=== PATIENT | male | born 1980 | race Hispanic/Latino ===

== ENCOUNTER 2021-01-16 21:23 | Emergency (ER) | payer BC ==
[~2021-01-16] VITALS: Ht 190.5 cm; Wt 115.7 kg
[2021-01-16] MEDS ORDERED: ONDANSETRON HCL INJ 2MG/ML 2ML 2 MG/ML VIAL IV STA (21:50)
[2021-01-16] MEDS ORDERED: Morphine 4mg Syringe 4 MG/ML INJ IV ONE (22:00)
[2021-01-16 22:25] LABS: BASOPHILS % 0.5 % (0.0-1.0); EOSINOPHILS # (AUTO) 0.1 (0.0-0.4); EOSINOPHILS % 1.7 % (0.0-6.0); HEMATOCRIT 28.9 % (38.2-49.6); HEMOGLOBIN 9.2 g/dL (14.0-18.0); LYMPHOCYTES # (AUTO) 0.9 (1.0-3.2); MEAN CORPUSCULAR HEMOGLOBIN 29.5 pg (28-32); MEAN CORPUSCULAR HGB CONC 31.8 g/dL (31-35); MEAN CORPUSCULAR VOLUME 92.6 fL (81-99); MONOCYTES # (AUTO) 0.4 (0.2-0.8); MONOCYTES % 7.1 % (4.4-11.3); NEUTROPHILS # (AUTO) 4.6 (2.1-6.9); NEUTROPHILS % 76.4 % (38.7-80.0); PLATELET COUNT 162 x10e3/uL (140-360); RED BLOOD COUNT 3.12 x10e6/uL (4.3-5.7); RED CELL DISTRIBUTION WIDTH 14.7 % (11.7-14.4)
[2021-01-16 22:26] LABS: CLARITY,URINE CLEAR (CLEAR); COLOR,URINE YELLOW (YELLOW); KETONES,URINE NEGATIVE (NEGATIVE); LEUKOCYTE ESTERASE ,URINE NEGATIVE (NEGATIVE); NITRITE,URINE NEGATIVE (NEGATIVE); PROTEIN,URINE DIPSTICK >=300 (NEGATIVE); URINE UROBILINOGEN 0.2 mg/dL (0.2 - 1)
[2021-01-16 22:30] LABS: BACTERIA,URINE FEW /HPF; EPITHELIAL CELLS,URINE FEW /LPF
[2021-01-16 22:43] LABS: AMYLASE 67 U/L (25-125); LIPASE 51 U/L (8-78)
[2021-01-16 22:47] LABS: ALBUMIN 3.8 g/dL (3.5-5.0); ALBUMIN/GLOBULIN RATIO 1.2 (0.8-2.0); ANION GAP 22.4 mmol/L (8-16); CALCIUM 8.6 mg/dL (8.4-10.2); CREATININE, SERUM 11.31 mg/dL (0.72-1.25); POTASSIUM 4.4 mmol/L (3.5-5.1)
[2021-01-16] MEDS ORDERED: ONDANSETRON ODT4 MG PO (23:33)
[2021-01-16] MEDS ORDERED: CIPRO500 MG PO (23:33)
[2021-01-16] MEDS ORDERED: METRONIDAZOLE500 MG PO (23:33)
[2021-01-16] MEDS ORDERED: HYDROCODON-ACE1 EAC9 PO (23:33)
[2021-01-17 00:56] VITALS: BP 152/91
== END 2021-01-17 00:57 | disposition home or self-care (01) ==
LOC: ER 21:58
DX: K62.89 Other specified diseases of anus and rectum (principal); R10.30 Lower abdominal pain, unspecified; R11.2 Nausea with vomiting, unspecified; I12.0 Hypertensive chronic kidney disease with stage 5 chronic kidney disease or end stage renal disease; N18.6 End stage renal disease; Z99.2 Dependence on renal dialysis; J98.11 Atelectasis
CPT/HCPCS: 36415; 74176; 80053; 81001; 82150; 83690; 85025; 99284; J2270; J2405

== ENCOUNTER 2021-01-24 23:55 | Emergency (ER) | payer BC ==
[~2021-01-24] VITALS: Ht 190.5 cm; Wt 115.7 kg
[~2021-01-24 23:55] MED LIST: CIPRO500 MG PO; HYDROCODON-ACE1 EAC9 PO; METRONIDAZOLE500 MG PO; ONDANSETRON ODT4 MG PO
[2021-01-25] MEDS ORDERED: ONDANSETRON ODT4 MG PO (00:13)
[2021-01-25] MEDS ORDERED: METRONIDAZOLE500 MG PO (00:13)
[2021-01-25] MEDS ORDERED: CIPRO500 MG PO (00:13)
[2021-01-25] MEDS ORDERED: HYDROCODON-ACE1 EAC9 PO (00:13)
[2021-01-25 00:19] VITALS: BP 164/100
== END 2021-01-25 01:00 | disposition home or self-care (01) ==
LOC: ER 01-25 00:01
DX: K62.89 Other specified diseases of anus and rectum (principal); I12.0 Hypertensive chronic kidney disease with stage 5 chronic kidney disease or end stage renal disease; N18.6 End stage renal disease; Z99.2 Dependence on renal dialysis; Z90.49 Acquired absence of other specified parts of digestive tract
CPT/HCPCS: 99283

== ENCOUNTER 2021-02-04 17:04 | Inpatient (IN) | payer BC ==
[~2021-02-04] VITALS: Ht 190.5 cm; Wt 122.5 kg
[2021-02-04 17:32] LABS: BASOPHILS % 0.5 % (0.0-1.0); EOSINOPHILS # (AUTO) 0.1 (0.0-0.4); EOSINOPHILS % 1.7 % (0.0-6.0); HEMATOCRIT 34.7 % (38.2-49.6); HEMOGLOBIN 10.6 g/dL (14.0-18.0); LYMPHOCYTES # (AUTO) 0.8 (1.0-3.2); LYMPHOCYTES % 12.6 % (18.0-39.1); MEAN CORPUSCULAR HEMOGLOBIN 29.2 pg (28-32); MEAN CORPUSCULAR HGB CONC 30.5 g/dL (31-35); MEAN CORPUSCULAR VOLUME 95.6 fL (81-99); MONOCYTES # (AUTO) 0.4 (0.2-0.8); MONOCYTES % 7.4 % (4.4-11.3); NEUTROPHILS # (AUTO) 4.6 (2.1-6.9); NEUTROPHILS % 77.5 % (38.7-80.0); PLATELET COUNT 160 x10e3/uL (140-360); RED BLOOD COUNT 3.63 x10e6/uL (4.3-5.7); RED CELL DISTRIBUTION WIDTH 15.9 % (11.7-14.4)
[2021-02-04] MEDS ORDERED: SODIUM CHLORIDE 0.9% 50ML 50 ML ONE (17:43)
[2021-02-04] MEDS ORDERED: IOPAMIDOL 370 MG/ML 200 ML INFUS..BTL INJ ONE (17:44)
[2021-02-04 17:45] LABS: ALBUMIN/GLOBULIN RATIO 1.2 (0.8-2.0); CALCIUM 9.1 mg/dL (8.4-10.2); CREATININE, SERUM 8.73 mg/dL (0.72-1.25)
[2021-02-04] MEDS ORDERED: ASPIRIN 325 MG TAB EC PO NR (19:00)
[2021-02-04] MEDS ORDERED: ACETAMINOPHEN 325 MG TAB PO PRN (19:45)
[2021-02-04] MEDS ORDERED: ASPIRIN 325 MG TAB ONE (19:55)
[2021-02-04 21:05] VITALS: BP 165/107
[2021-02-04 21:10] VITALS: BP 167/107
[2021-02-04] MEDS ORDERED: Morphine 2mg Syringe 2 MG/ML SYR IV PRN (21:15)
[2021-02-04] MEDS ORDERED: TRAMADOL HCL 50 MG TAB PO PRN (23:30)
[2021-02-04] MEDS: PROMETHAZINE 12.5MG/ NACL 0.9% 12.5 MG/50 ML BAG IV PRN (23:47)
[2021-02-05] VITALS (9 sets, daily range): BP systolic 118–177; BP diastolic 74–114
[2021-02-05] MEDS ORDERED: AMLODIPINE BESYL5 MG PO (00:56)
[2021-02-05] MEDS: HYDROMORPHONE 1MG/1ML INJ IV PRN ×6 (03:40→22:26)
[2021-02-05] MEDS: PROMETHAZINE 12.5MG/ NACL 0.9% 12.5 MG/50 ML BAG IV PRN (03:48)
[2021-02-05 05:01] LABS: BASOPHILS % 0.7 % (0.0-1.0); EOSINOPHILS # (AUTO) 0.2 (0.0-0.4); EOSINOPHILS % 2.7 % (0.0-6.0); HEMATOCRIT 32.4 % (38.2-49.6); LYMPHOCYTES # (AUTO) 1.1 (1.0-3.2); LYMPHOCYTES % 19.8 % (18.0-39.1); MEAN CORPUSCULAR HEMOGLOBIN 29.4 pg (28-32); MEAN CORPUSCULAR HGB CONC 30.9 g/dL (31-35); MEAN CORPUSCULAR VOLUME 95.3 fL (81-99); MONOCYTES # (AUTO) 0.4 (0.2-0.8); MONOCYTES % 7.8 % (4.4-11.3); NEUTROPHILS # (AUTO) 3.8 (2.1-6.9); NEUTROPHILS % 68.6 % (38.7-80.0); PLATELET COUNT 151 x10e3/uL (140-360)
[2021-02-05 05:24] LABS: ANION GAP 19.8 mmol/L (8-16); CREATININE, SERUM 9.19 mg/dL (0.72-1.25); POTASSIUM 3.8 mmol/L (3.5-5.1)
[2021-02-05] MEDS ORDERED: AMLODIPINE BESYLATE 10 MG TAB PO SCH (09:00)
[2021-02-05] MEDS: CARVEDILOL 12.5 MG TAB PO SCH ×2 (10:30→18:02)
[2021-02-05] MEDS: INDOMETHACIN 25 MG CAP PO SCH ×3 (11:15→21:26)
[2021-02-05] MEDS: DIPHENHYDRAMINE HCL INJ 50 MG/ML VIAL IV PRN ×2 (11:30→18:02)
[2021-02-05] MEDS ORDERED: SODIUM CHLORIDE 0.9% 1000ML 1,000 ML ONE (13:24)
[2021-02-05] MEDS ORDERED: SODIUM CHLORIDE 0.9% 250ML 500 ML IV PRN (15:15)
[2021-02-05] MEDS ORDERED: SODIUM CHLORIDE 0.9% 1000ML 2,000 ML IV PRN (15:15)
[2021-02-05] MEDS: LOSARTAN POTASSIUM 25 MG TAB PO SCH ×2 (16:33→16:35)
[2021-02-05] MEDS: NIFEDIPINE CR 30 MG TAB PO SCH (21:26)
[2021-02-06] VITALS (8 sets, daily range): BP systolic 115–148; BP diastolic 81–101
[2021-02-06] MEDS: DIPHENHYDRAMINE HCL INJ 50 MG/ML VIAL IV PRN ×4 (00:31→21:15)
[2021-02-06] MEDS: HYDROMORPHONE 1MG/1ML INJ IV PRN ×4 (04:12→19:46)
[2021-02-06 05:05] LABS: BASOPHILS % 0.7 % (0.0-1.0); EOSINOPHILS # (AUTO) 0.1 (0.0-0.4); EOSINOPHILS % 2.9 % (0.0-6.0); HEMATOCRIT 33.4 % (38.2-49.6); HEMOGLOBIN 10.1 g/dL (14.0-18.0); LYMPHOCYTES # (AUTO) 0.7 (1.0-3.2); LYMPHOCYTES % 17.6 % (18.0-39.1); MEAN CORPUSCULAR HEMOGLOBIN 29.3 pg (28-32); MEAN CORPUSCULAR HGB CONC 30.2 g/dL (31-35); MEAN CORPUSCULAR VOLUME 96.8 fL (81-99); MONOCYTES # (AUTO) 0.4 (0.2-0.8); MONOCYTES % 8.9 % (4.4-11.3); NEUTROPHILS # (AUTO) 2.9 (2.1-6.9); NEUTROPHILS % 69.7 % (38.7-80.0); PLATELET COUNT 156 x10e3/uL (140-360); RED BLOOD COUNT 3.45 x10e6/uL (4.3-5.7); RED CELL DISTRIBUTION WIDTH 15.9 % (11.7-14.4)
[2021-02-06 05:42] LABS: THYROID STIMULATING HORMONE 1.779 uIU/mL (0.350-4.940)
[2021-02-06 05:45] LABS: ALBUMIN 3.6 g/dL (3.5-5.0); ALBUMIN/GLOBULIN RATIO 1.1 (0.8-2.0); ANION GAP 16.2 mmol/L (8-16); CALCIUM 9.1 mg/dL (8.4-10.2); CHOL/HDL RATIO 4.8 (3.9-4.7); CREATININE, SERUM 7.09 mg/dL (0.72-1.25); MAGNESIUM 2.1 MG/DL (1.3-2.1); PHOSPHORUS 6.1 MG/DL (2.3-4.7); POTASSIUM 4.2 mmol/L (3.5-5.1)
[2021-02-06] MEDS: CARVEDILOL 12.5 MG TAB PO SCH ×3 (08:49→21:00)
[2021-02-06] MEDS: INDOMETHACIN 25 MG CAP PO SCH ×3 (09:00→21:14)
[2021-02-06] MEDS ORDERED: REGADENOSON 0.4 MG/5 ML SYR IV ONE (12:02)
[2021-02-06] MEDS: LOSARTAN POTASSIUM 25 MG TAB PO SCH ×2 (16:46→17:00)
[2021-02-06] MEDS: PANTOPRAZOLE SOD 40 MG TABEC PO SCH (16:46)
[2021-02-06] MEDS ORDERED: IOPAMIDOL 370 MG/ML 200 ML INFUS..BTL INJ ONE (19:56)
[2021-02-06] MEDS ORDERED: SODIUM CHLORIDE 0.9% 100 ML ONE (19:57)
[2021-02-06] MEDS: NIFEDIPINE CR 30 MG TAB PO SCH (21:15)
[2021-02-07] VITALS (10 sets, daily range): BP systolic 116–127; BP diastolic 53–88
[2021-02-07] MEDS: HYDROMORPHONE 1MG/1ML INJ IV PRN ×5 (01:12→20:39)
[2021-02-07] MEDS: DIPHENHYDRAMINE HCL INJ 50 MG/ML VIAL IV PRN ×2 (03:45→18:47)
[2021-02-07 05:04] LABS: BASOPHILS % 0.5 % (0.0-1.0); EOSINOPHILS # (AUTO) 0.2 (0.0-0.4); EOSINOPHILS % 3.9 % (0.0-6.0); HEMATOCRIT 30.5 % (38.2-49.6); HEMOGLOBIN 9.5 g/dL (14.0-18.0); LYMPHOCYTES # (AUTO) 0.6 (1.0-3.2); MEAN CORPUSCULAR HEMOGLOBIN 29.3 pg (28-32); MEAN CORPUSCULAR HGB CONC 31.1 g/dL (31-35); MEAN CORPUSCULAR VOLUME 94.1 fL (81-99); MONOCYTES # (AUTO) 0.4 (0.2-0.8); MONOCYTES % 8.3 % (4.4-11.3); NEUTROPHILS # (AUTO) 3.2 (2.1-6.9); NEUTROPHILS % 72.8 % (38.7-80.0); PLATELET COUNT 142 x10e3/uL (140-360); RED BLOOD COUNT 3.24 x10e6/uL (4.3-5.7); RED CELL DISTRIBUTION WIDTH 15.8 % (11.7-14.4)
[2021-02-07 05:17] LABS: INR 1.13; PROTHROMBIN TIME 15.4 seconds (11.9-14.5)
[2021-02-07 05:18] LABS: PARTIAL THROMBOPLASTIN TIME 29.7 seconds (23.8-35.5)
[2021-02-07 05:28] LABS: ALBUMIN 3.6 g/dL (3.5-5.0); ALBUMIN/GLOBULIN RATIO 1.2 (0.8-2.0); ANION GAP 17.1 mmol/L (8-16); CALCIUM 8.7 mg/dL (8.4-10.2); CREATININE, SERUM 9.14 mg/dL (0.72-1.25); POTASSIUM 4.1 mmol/L (3.5-5.1)
[2021-02-07 06:17] LABS: MAGNESIUM 2.1 MG/DL (1.3-2.1); PHOSPHORUS 7.6 MG/DL (2.3-4.7)
[2021-02-07] MEDS: PANTOPRAZOLE SOD 40 MG TABEC PO SCH (07:30)
[2021-02-07] MEDS ORDERED: HEPARIN SOD (PORCINE) 1000 UNIT/ML 30ML ONE (08:03)
[2021-02-07] MEDS ORDERED: VERAPAMIL HCL 2.5 MG/ML 2 ML VIAL ONE (08:03)
[2021-02-07] MEDS ORDERED: MIDAZOLAM HCL 2 MG/2 ML VIAL ONE (08:04)
[2021-02-07] MEDS ORDERED: NITROGLYCERIN/D5W 200 MCG/ML 0 ML ONE (08:05)
[2021-02-07] MEDS ORDERED: HEPARIN SOD/SOD CHLORIDE 2,000 ML ONE (08:05)
[2021-02-07] MEDS ORDERED: SODIUM CHLORIDE 0.9% 500ML 500 ML ONE (08:05)
[2021-02-07] MEDS ORDERED: FENTANYL CITRATE/PF 100MCG/2 ML INJ ONE (08:05)
[2021-02-07] MEDS ORDERED: IOPAMIDOL 370 MG/ML 200 ML INFUS..BTL INJ ONE (08:05)
[2021-02-07] MEDS ORDERED: LIDOCAINE HCL 2% LOCAL 20 ML VIAL ONE (08:05)
[2021-02-07] MEDS: INDOMETHACIN 25 MG CAP PO SCH ×3 (09:00→21:45)
[2021-02-07] MEDS: LOSARTAN POTASSIUM 25 MG TAB PO SCH (09:00)
[2021-02-07] MEDS: CARVEDILOL 12.5 MG TAB PO SCH ×2 (09:00→21:43)
[2021-02-07] MEDS ORDERED: LIPITOR10 MG PO (14:20)
[2021-02-07 14:36] LABS: % IRON SATURATION 17 % (15-50); IRON 43 ug/dL (65-175); TOTAL IRON BINDING CAPACITY 253 ug/dL (261-478); TRANSFERRIN 181 mg/dL (174-364)
[2021-02-07] MEDS ORDERED: SACUBITRIL/VALSARTAN 1 EACH TABLET PO SCH (17:00)
[2021-02-07] MEDS: SACUBITRIL/VALSARTAN 1 EACH TABLET PO SCH (21:44)
[2021-02-07] MEDS: ATORVASTATIN 10 MG TAB PO SCH (21:45)
[2021-02-07] MEDS: NIFEDIPINE CR 30 MG TAB PO SCH (21:46)
[2021-02-08] VITALS (7 sets, daily range): BP systolic 109–120; BP diastolic 77–85
[2021-02-08] MEDS ORDERED: DONNATAL/LIDOCAINE/MAALOX 30 ML SUSP PO ONE
[2021-02-08] MEDS ORDERED: BELLADONNA ALK/PHENOBARBITAL 5 ML UDC ONE (00:48)
[2021-02-08] MEDS ORDERED: LIDOCAINE VISC 2% SOLN 15 ML UDC ONE (00:48)
[2021-02-08] MEDS ORDERED: MAGNESIUM/ALUMINUM/SIMETHICONE 30 ML UDC ONE (00:48)
[2021-02-08] MEDS: DIPHENHYDRAMINE HCL INJ 50 MG/ML VIAL IV PRN ×3 (02:46→20:32)
[2021-02-08] MEDS: HYDROMORPHONE 1MG/1ML INJ IV PRN ×3 (02:55→20:32)
[2021-02-08 06:10] LABS: BASOPHILS % 0.9 % (0.0-1.0); EOSINOPHILS # (AUTO) 0.2 (0.0-0.4); EOSINOPHILS % 4.1 % (0.0-6.0); HEMATOCRIT 30.6 % (38.2-49.6); HEMOGLOBIN 9.5 g/dL (14.0-18.0); LYMPHOCYTES # (AUTO) 0.6 (1.0-3.2); LYMPHOCYTES % 14.3 % (18.0-39.1); MEAN CORPUSCULAR HEMOGLOBIN 29.4 pg (28-32); MEAN CORPUSCULAR VOLUME 94.7 fL (81-99); MONOCYTES # (AUTO) 0.4 (0.2-0.8); MONOCYTES % 9.3 % (4.4-11.3); NEUTROPHILS # (AUTO) 3.1 (2.1-6.9); NEUTROPHILS % 71.2 % (38.7-80.0); PLATELET COUNT 144 x10e3/uL (140-360); RED BLOOD COUNT 3.23 x10e6/uL (4.3-5.7)
[2021-02-08 06:27] LABS: ALBUMIN 3.6 g/dL (3.5-5.0); ALBUMIN/GLOBULIN RATIO 1.2 (0.8-2.0); ANION GAP 16.5 mmol/L (8-16); CREATININE, SERUM 7.17 mg/dL (0.72-1.25); POTASSIUM 4.5 mmol/L (3.5-5.1)
[2021-02-08] MEDS: PANTOPRAZOLE SOD 40 MG TABEC PO SCH (07:30)
[2021-02-08] MEDS: CARVEDILOL 12.5 MG TAB PO SCH ×2 (09:00→20:16)
[2021-02-08] MEDS: SACUBITRIL/VALSARTAN 1 EACH TABLET PO SCH ×2 (09:00→20:17)
[2021-02-08] MEDS: ASPIRIN 81 MG CHEW TAB PO SCH (09:00)
[2021-02-08] MEDS: INDOMETHACIN 25 MG CAP PO SCH ×2 (09:00→14:21)
[2021-02-08] MEDS ORDERED: PROPOFOL IV EMULSION 10 MG/ML 20 ML VIAL ONE (12:27)
[2021-02-08] MEDS ORDERED: LIDOCAINE HCL 2% LOCAL INJ 5 ML SDV VIAL INJ ONE (12:27)
[2021-02-08] MEDS ORDERED: FENTANYL CITRATE/PF 100MCG/2 ML INJ ONE (12:29)
[2021-02-08] MEDS ORDERED: SODIUM CHLORIDE 0.9% 500ML 500 ML ONE (15:57)
[2021-02-08] MEDS ORDERED: METOCLOPRAMIDE HCL 10 MG/2ML VIAL IV SCH (18:00)
[2021-02-08] MEDS: ATORVASTATIN 10 MG TAB PO SCH (20:17)
[2021-02-08] MEDS: NIFEDIPINE CR 30 MG TAB PO SCH (20:17)
[2021-02-08] MEDS: PROMETHAZINE 12.5MG/ NACL 0.9% 12.5 MG/50 ML BAG IV PRN (21:43)
[2021-02-08] MEDS ORDERED: ASPIRIN CHEW81 MG PO (22:27)
[2021-02-08] MEDS ORDERED: ENTRESTO 49 MG1 EACH PO (22:27)
[2021-02-08] MEDS ORDERED: COREG12.5 MG PO (22:27)
[2021-02-09] VITALS (9 sets, daily range): BP systolic 102–125; BP diastolic 66–99
[2021-02-09] MEDS ORDERED: METOCLOPRAMIDE HCL 10 MG/2ML VIAL IV STA (02:47)
[2021-02-09] MEDS: Pantoprazole IV 40 MG in SODIUM CHLORIDE 0.9% 50ML 50 ML IV SCH ×2 (03:00→08:00)
[2021-02-09] MEDS: HYDROMORPHONE 1MG/1ML INJ IV PRN ×2 (04:20→09:00)
[2021-02-09] MEDS: DIPHENHYDRAMINE HCL INJ 50 MG/ML VIAL IV PRN ×3 (04:21→22:25)
[2021-02-09 05:13] LABS: BASOPHILS % 0.8 % (0.0-1.0); EOSINOPHILS # (AUTO) 0.1 (0.0-0.4); HEMATOCRIT 31.4 % (38.2-49.6); HEMOGLOBIN 9.7 g/dL (14.0-18.0); LYMPHOCYTES # (AUTO) 0.7 (1.0-3.2); LYMPHOCYTES % 14.2 % (18.0-39.1); MEAN CORPUSCULAR HEMOGLOBIN 29.4 pg (28-32); MEAN CORPUSCULAR HGB CONC 30.9 g/dL (31-35); MEAN CORPUSCULAR VOLUME 95.2 fL (81-99); MONOCYTES # (AUTO) 0.4 (0.2-0.8); MONOCYTES % 8.3 % (4.4-11.3); NEUTROPHILS # (AUTO) 3.7 (2.1-6.9); NEUTROPHILS % 74.5 % (38.7-80.0); PLATELET COUNT 126 x10e3/uL (140-360)
[2021-02-09 05:34] LABS: ALBUMIN 3.6 g/dL (3.5-5.0); ALBUMIN/GLOBULIN RATIO 1.2 (0.8-2.0); ANION GAP 16.9 mmol/L (8-16); CALCIUM 8.3 mg/dL (8.4-10.2); CREATININE, SERUM 9.23 mg/dL (0.72-1.25); POTASSIUM 4.9 mmol/L (3.5-5.1)
[2021-02-09] MEDS ORDERED: METOCLOPRAMIDE HCL 10 MG/2ML VIAL IV SCH ×2 (07:30→09:00)
[2021-02-09] MEDS: METOCLOPRAMIDE HCL 10 MG TAB PO SCH ×4 (07:30→20:58)
[2021-02-09] MEDS ORDERED: PANTOPRAZOLE SO40 MG PO (07:32)
[2021-02-09] MEDS ORDERED: REGLAN10 MG PO (07:32)
[2021-02-09] MEDS: CARVEDILOL 12.5 MG TAB PO SCH ×2 (08:31→20:58)
[2021-02-09] MEDS: ASPIRIN 81 MG CHEW TAB PO SCH (08:32)
[2021-02-09] MEDS: SACUBITRIL/VALSARTAN 1 EACH TABLET PO SCH ×2 (09:00→20:58)
[2021-02-09] MEDS ORDERED: ONDANSETRON ODT4 MG PO (10:42)
[2021-02-09] MEDS ORDERED: TYLENOL EXTRA500 MG PO (10:43)
[2021-02-09] MEDS ORDERED: NIFEDIPINE ER30 M1 PO (10:44)
[2021-02-09] MEDS: HYDROCODONE/APAP 10MG-325MG TAB PO PRN ×2 (13:05→20:58)
[2021-02-09] MEDS: ATORVASTATIN 10 MG TAB PO SCH (20:58)
[2021-02-10] MEDS: PROMETHAZINE 12.5MG/ NACL 0.9% 12.5 MG/50 ML BAG IV PRN (04:00)
[2021-02-10] MEDS: HYDROMORPHONE 1MG/1ML INJ IV PRN ×2 (04:00→08:08)
[2021-02-10] MEDS: Pantoprazole IV 40 MG in SODIUM CHLORIDE 0.9% 50ML 50 ML IV SCH ×3 (04:27→16:07)
[2021-02-10 05:15] LABS: BASOPHILS % 0.9 % (0.0-1.0); EOSINOPHILS # (AUTO) 0.1 (0.0-0.4); EOSINOPHILS % 2.6 % (0.0-6.0); HEMATOCRIT 31.9 % (38.2-49.6); HEMOGLOBIN 9.8 g/dL (14.0-18.0); LYMPHOCYTES # (AUTO) 0.8 (1.0-3.2); LYMPHOCYTES % 16.7 % (18.0-39.1); MEAN CORPUSCULAR HEMOGLOBIN 29.3 pg (28-32); MEAN CORPUSCULAR HGB CONC 30.7 g/dL (31-35); MEAN CORPUSCULAR VOLUME 95.5 fL (81-99); MONOCYTES # (AUTO) 0.4 (0.2-0.8); MONOCYTES % 9.2 % (4.4-11.3); NEUTROPHILS # (AUTO) 3.2 (2.1-6.9); NEUTROPHILS % 70.4 % (38.7-80.0); PLATELET COUNT 126 x10e3/uL (140-360); RED BLOOD COUNT 3.34 x10e6/uL (4.3-5.7); RED CELL DISTRIBUTION WIDTH 15.9 % (11.7-14.4)
[2021-02-10 05:34] LABS: ALBUMIN 3.7 g/dL (3.5-5.0); ALBUMIN/GLOBULIN RATIO 1.3 (0.8-2.0); ANION GAP 19.7 mmol/L (8-16); CALCIUM 8.2 mg/dL (8.4-10.2); CREATININE, SERUM 10.72 mg/dL (0.72-1.25); POTASSIUM 4.7 mmol/L (3.5-5.1)
[2021-02-10 05:37] VITALS: BP 126/84
[2021-02-10] MEDS: DIPHENHYDRAMINE HCL INJ 50 MG/ML VIAL IV PRN (06:35)
[2021-02-10] MEDS: METOCLOPRAMIDE HCL 10 MG TAB PO SCH ×3 (07:46→16:36)
[2021-02-10] MEDS: ASPIRIN 81 MG CHEW TAB PO SCH (08:09)
[2021-02-10] MEDS: SACUBITRIL/VALSARTAN 1 EACH TABLET PO SCH (08:09)
[2021-02-10 08:19] VITALS: BP 134/90
[2021-02-10 12:00] VITALS: BP 122/88
[2021-02-10] MEDS: HYDROCODONE/APAP 10MG-325MG TAB PO PRN (15:25)
[2021-02-10 16:30] VITALS: BP 148/86
[2021-02-10] MEDS ORDERED: HYDROXYZINE PAMOATE 25 MG CAP PO PRN (16:30)
[2021-02-10] MEDS ORDERED: HYDROXYZINE PAM25 MG PO (17:48)
[2021-02-10] MEDS ORDERED: CARVEDILOL 12.5 MG TAB PO SCH (21:00)
== END 2021-02-10 18:39 | disposition home or self-care (01) | DRG 286 ==
LOC: ER 17:11 → ERHOLD 18:51 → MED/SURG 21:40 → OBSVTOIN 02-06 15:51
PROVIDERS: ADMIT Internal Medicine; ATTEND Internal Medicine
PROC: 5A1D70Z Performance of Urinary Filtration, Intermittent, Less than 6 Hours Per Day (ICD-10-PCS; 2021-02-05)
PROC: 4A023N7 Measurement of Cardiac Sampling and Pressure, Left Heart, Percutaneous Approach (ICD-10-PCS; principal; 2021-02-07)
PROC: B2111ZZ Fluoroscopy of Multiple Coronary Arteries using Low Osmolar Contrast (ICD-10-PCS; 2021-02-07)
PROC: B2151ZZ Fluoroscopy of Left Heart using Low Osmolar Contrast (ICD-10-PCS; 2021-02-07)
PROC: 0DB68ZX Excision of Stomach, Via Natural or Artificial Opening Endoscopic, Diagnostic (ICD-10-PCS; 2021-02-08)
DX: I13.2 Hypertensive heart and chronic kidney disease with heart failure and with stage 5 chronic kidney disease, or end stage renal disease (principal); I50.21 Acute systolic (congestive) heart failure; N18.6 End stage renal disease; N25.81 Secondary hyperparathyroidism of renal origin; E11.22 Type 2 diabetes mellitus with diabetic chronic kidney disease; Z88.5 Allergy status to narcotic agent; E66.9 Obesity, unspecified; E11.43 Type 2 diabetes mellitus with diabetic autonomic (poly)neuropathy; K31.84 Gastroparesis; K20.90 Esophagitis, unspecified without bleeding; K29.70 Gastritis, unspecified, without bleeding; I25.10 Atherosclerotic heart disease of native coronary artery without angina pectoris; D69.6 Thrombocytopenia, unspecified; Z68.33 Body mass index [BMI] 33.0-33.9, adult; Z20.822 Contact with and (suspected) exposure to COVID-19; Z90.49 Acquired absence of other specified parts of digestive tract; R55 Syncope and collapse
CPT/HCPCS: 36415; 43239; 71260; 71275; 74176; 75605; 78452; 80048; 80053; 80061; 82607; 83540; 83690; 83735; 83880; 84100; 84443; 84466; 84484; 85025; 85610; 85730; 86705; 86706; 87340; 88305; 88312; 88342; 90935; 90962; 93005; 93017; 93041; 93306; 93458; 94799; 99152; 99284; A9502; C1887; G0378; J1170; J1200; J1644; J2001; J2250; J2270; J2550; J2765; J3010; J7030; J7040; J7050; Q0177; Q9967; U0002

== ENCOUNTER 2021-02-10 22:31 | Inpatient (IN) | payer BC ==
[~2021-02-10] VITALS: Ht 190.5 cm; Wt 124.7 kg
[~2021-02-10 22:31] MED LIST changes: +AMLODIPINE BESYL5 MG PO; +ASPIRIN CHEW81 MG PO; +COREG12.5 MG PO; +ENTRESTO 49 MG1 EACH PO; +HYDROXYZINE PAM25 MG PO; +LIPITOR10 MG PO; +NIFEDIPINE ER30 M1 PO; +PANTOPRAZOLE SO40 MG PO; +REGLAN10 MG PO; +TYLENOL EXTRA500 MG PO
[2021-02-10 23:49] LABS: BASOPHILS % 0.4 % (0.0-1.0); EOSINOPHILS # (AUTO) 0.1 (0.0-0.4); EOSINOPHILS % 1.2 % (0.0-6.0); HEMATOCRIT 33.8 % (38.2-49.6); HEMOGLOBIN 10.7 g/dL (14.0-18.0); LYMPHOCYTES # (AUTO) 0.5 (1.0-3.2); LYMPHOCYTES % 7.4 % (18.0-39.1); MEAN CORPUSCULAR HEMOGLOBIN 29.7 pg (28-32); MEAN CORPUSCULAR HGB CONC 31.7 g/dL (31-35); MEAN CORPUSCULAR VOLUME 93.9 fL (81-99); MONOCYTES # (AUTO) 0.5 (0.2-0.8); NEUTROPHILS # (AUTO) 6.1 (2.1-6.9); NEUTROPHILS % 83.7 % (38.7-80.0); PLATELET COUNT 131 x10e3/uL (140-360); RED CELL DISTRIBUTION WIDTH 15.9 % (11.7-14.4)
[2021-02-11] VITALS (7 sets, daily range): BP systolic 124–157; BP diastolic 86–107
[2021-02-11 00:04] LABS: AMYLASE 89 U/L (25-125); LIPASE 49 U/L (8-78)
[2021-02-11 00:08] LABS: ALBUMIN 3.9 g/dL (3.5-5.0); ALBUMIN/GLOBULIN RATIO 1.2 (0.8-2.0); ANION GAP 18.4 mmol/L (8-16); CALCIUM 8.8 mg/dL (8.4-10.2); CREATININE, SERUM 7.24 mg/dL (0.72-1.25); POTASSIUM 4.4 mmol/L (3.5-5.1)
[2021-02-11 00:14] LABS: CREATINE KINASE MB 5.1 ng/mL (0-5.0)
[2021-02-11] MEDS ORDERED: ASPIRIN 81 MG CHEW TAB PO ONE (01:00)
[2021-02-11] MEDS ORDERED: CLOPIDOGREL BISULFATE 75 MG TAB PO ONE (01:00)
[2021-02-11] MEDS ORDERED: ASPIRIN 81 MG CHEW TAB ONE (01:50)
[2021-02-11] MEDS ORDERED: NITROGLYCERIN 2% OINT 1 GM PKT ONE (01:59)
[2021-02-11] MEDS ORDERED: ACETAMINOPHEN 325 MG TAB PO ONE (02:00)
[2021-02-11] MEDS ORDERED: ONDANSETRON HCL INJ 2MG/ML 2ML 2 MG/ML VIAL IV PRN (02:00)
[2021-02-11] MEDS ORDERED: NITROGLYCERIN 2% OINT 1 GM PKT TOP ONE (02:00)
[2021-02-11] MEDS: NITROGLYCERIN 2% OINT 1 GM PKT TOP SCH ×3 (05:46→16:23)
[2021-02-11 06:52] LABS: CREATINE KINASE MB 4.6 ng/mL (0-5.0)
[2021-02-11] MEDS: ASPIRIN 81 MG ENTERIC COATED PO SCH (08:49)
[2021-02-11] MEDS ORDERED: CLOPIDOGREL BISULFATE 75 MG TAB PO SCH (09:00)
[2021-02-11] MEDS ORDERED: DONNATAL/LIDOCAINE/MAALOX 30 ML SUSP PO PRN (10:00)
[2021-02-11] MEDS: CARVEDILOL 12.5 MG TAB PO SCH ×2 (10:35→21:00)
[2021-02-11] MEDS: HYDROCODONE/APAP 10MG-325MG TAB PO PRN ×2 (10:35→16:45)
[2021-02-11 11:12] LABS: CREATINE KINASE MB 4.7 ng/mL (0-5.0)
[2021-02-11] MEDS: HYDROXYZINE PAMOATE 25 MG CAP PO PRN (11:51)
[2021-02-11] MEDS: METOCLOPRAMIDE HCL 10 MG/2ML VIAL IV SCH ×2 (12:03→16:22)
[2021-02-11] MEDS ORDERED: SODIUM CHLORIDE 0.9% 1000ML 2,000 ML ONE (12:33)
[2021-02-11] MEDS: SEVELAMER CARBONATE 800 MG TAB PO SCH ×2 (13:08→16:22)
[2021-02-11] MEDS: VALSARTAN/SACUBITRIL 24MG/26MG 1 EA TAB PO SCH ×2 (13:15→21:39)
[2021-02-11] MEDS: DIPHENHYDRAMINE HCL INJ 50 MG/ML VIAL IV PRN ×2 (16:05→21:39)
[2021-02-11] MEDS: NIFEDIPINE CR 30 MG TAB PO SCH (21:00)
[2021-02-11] MEDS ORDERED: CARVEDILOL 12.5 MG TAB PO SCH (21:00)
[2021-02-11] MEDS ORDERED: SACUBITRIL/VALSARTAN 1 EACH TABLET PO SCH (21:00)
[2021-02-11] MEDS: ATORVASTATIN 10 MG TAB PO SCH (21:39)
[2021-02-12] VITALS (8 sets, daily range): BP systolic 140–170; BP diastolic 89–99
[2021-02-12] MEDS: NITROGLYCERIN 2% OINT 1 GM PKT TOP SCH ×4 (01:02→18:02)
[2021-02-12] MEDS: HYDROCODONE/APAP 10MG-325MG TAB PO PRN ×2 (01:02→11:35)
[2021-02-12] MEDS: Pantoprazole IV 40 MG in SODIUM CHLORIDE 0.9% 50ML 50 ML IV SCH ×5 (01:51→21:25)
[2021-02-12] MEDS: DIPHENHYDRAMINE HCL INJ 50 MG/ML VIAL IV PRN ×3 (04:36→18:09)
[2021-02-12 05:06] LABS: BASOPHILS % 0.6 % (0.0-1.0); EOSINOPHILS # (AUTO) 0.2 (0.0-0.4); EOSINOPHILS % 3.1 % (0.0-6.0); HEMATOCRIT 31.3 % (38.2-49.6); HEMOGLOBIN 9.5 g/dL (14.0-18.0); LYMPHOCYTES # (AUTO) 0.8 (1.0-3.2); LYMPHOCYTES % 15.5 % (18.0-39.1); MEAN CORPUSCULAR HEMOGLOBIN 29.3 pg (28-32); MEAN CORPUSCULAR HGB CONC 30.4 g/dL (31-35); MEAN CORPUSCULAR VOLUME 96.6 fL (81-99); MONOCYTES # (AUTO) 0.6 (0.2-0.8); MONOCYTES % 10.8 % (4.4-11.3); NEUTROPHILS # (AUTO) 3.6 (2.1-6.9); NEUTROPHILS % 69.6 % (38.7-80.0); PLATELET COUNT 127 x10e3/uL (140-360); RED BLOOD COUNT 3.24 x10e6/uL (4.3-5.7); RED CELL DISTRIBUTION WIDTH 15.9 % (11.7-14.4)
[2021-02-12 05:35] LABS: ALBUMIN 3.4 g/dL (3.5-5.0); ALBUMIN/GLOBULIN RATIO 1.1 (0.8-2.0); ANION GAP 14.7 mmol/L (8-16); CALCIUM 8.6 mg/dL (8.4-10.2); CHOL/HDL RATIO 2.9 (3.9-4.7); CREATININE, SERUM 7.2 mg/dL (0.72-1.25); POTASSIUM 4.7 mmol/L (3.5-5.1)
[2021-02-12] MEDS: METOCLOPRAMIDE HCL 10 MG/2ML VIAL IV SCH ×3 (06:05→17:56)
[2021-02-12] MEDS: ASPIRIN 81 MG ENTERIC COATED PO SCH (08:27)
[2021-02-12] MEDS: SEVELAMER CARBONATE 800 MG TAB PO SCH ×3 (08:27→17:56)
[2021-02-12] MEDS ORDERED: AMLODIPINE BESYLATE 5 MG TAB PO SCH (09:00)
[2021-02-12] MEDS ORDERED: ASPIRIN 81 MG CHEW TAB PO SCH (09:00)
[2021-02-12] MEDS: VALSARTAN/SACUBITRIL 24MG/26MG 1 EA TAB PO SCH ×2 (11:35→22:20)
[2021-02-12] MEDS: CARVEDILOL 12.5 MG TAB PO SCH ×2 (11:35→22:20)
[2021-02-12] MEDS: HYDROXYZINE PAMOATE 25 MG CAP PO PRN (12:10)
[2021-02-12] MEDS: HYDROMORPHONE 1MG/1ML INJ IV PRN (21:00)
[2021-02-12] MEDS: ATORVASTATIN 10 MG TAB PO SCH (22:20)
[2021-02-12] MEDS: NIFEDIPINE CR 30 MG TAB PO SCH (22:21)
[2021-02-13] VITALS (7 sets, daily range): BP systolic 126–132; BP diastolic 84–95
[2021-02-13] MEDS: NITROGLYCERIN 2% OINT 1 GM PKT TOP SCH ×2 (00:35→06:15)
[2021-02-13] MEDS: METOCLOPRAMIDE HCL 10 MG/2ML VIAL IV SCH ×4 (00:35→18:11)
[2021-02-13] MEDS ORDERED: SODIUM CHLORIDE 0.9% 50ML 100 ML ONE (02:12)
[2021-02-13] MEDS: Pantoprazole IV 40 MG in SODIUM CHLORIDE 0.9% 50ML 50 ML IV SCH ×5 (02:28→21:30)
[2021-02-13] MEDS: HYDROMORPHONE 1MG/1ML INJ IV PRN ×4 (03:17→22:45)
[2021-02-13] MEDS: DIPHENHYDRAMINE HCL INJ 50 MG/ML VIAL IV PRN ×3 (06:15→21:30)
[2021-02-13] MEDS: CARVEDILOL 12.5 MG TAB PO SCH ×2 (09:00→21:30)
[2021-02-13 09:29] LABS: CLARITY,URINE CLEAR (CLEAR); COLOR,URINE YELLOW (YELLOW); KETONES,URINE NEGATIVE (NEGATIVE); LEUKOCYTE ESTERASE ,URINE NEGATIVE (NEGATIVE); NITRITE,URINE NEGATIVE (NEGATIVE); PROTEIN,URINE DIPSTICK >=300 (NEGATIVE); URINE UROBILINOGEN 0.2 mg/dL (0.2 - 1)
[2021-02-13 09:32] LABS: AMPHETAMINES SCREEN,URINE NEGATIVE (NEGATIVE); BENZODIAZEPINES SCREEN,URINE NEGATIVE (NEGATIVE); PHENCYCLIDINE SCREEN,URINE NEGATIVE (NEGATIVE)
[2021-02-13] MEDS: SEVELAMER CARBONATE 800 MG TAB PO SCH ×3 (09:52→16:28)
[2021-02-13] MEDS: ASPIRIN 81 MG ENTERIC COATED PO SCH (09:52)
[2021-02-13] MEDS: VALSARTAN/SACUBITRIL 24MG/26MG 1 EA TAB PO SCH ×2 (09:53→21:30)
[2021-02-13] MEDS ORDERED: DIPHENHYDRAMINE HCL 25 MG CAP PO PRN (10:00)
[2021-02-13 10:08] LABS: BACTERIA,URINE FEW /HPF; EPITHELIAL CELLS,URINE FEW /LPF; RBC,URINE 0-5 /HPF (0-5)
[2021-02-13] MEDS: NIFEDIPINE CR 30 MG TAB PO SCH (21:30)
[2021-02-13] MEDS: ATORVASTATIN 10 MG TAB PO SCH (21:30)
[2021-02-14] VITALS: BP 136/89
[2021-02-14] MEDS: METOCLOPRAMIDE HCL 10 MG/2ML VIAL IV SCH ×4 (00:23→17:29)
[2021-02-14] MEDS: Pantoprazole IV 40 MG in SODIUM CHLORIDE 0.9% 50ML 50 ML IV SCH ×3 (02:50→13:30)
[2021-02-14] MEDS: DIPHENHYDRAMINE HCL INJ 50 MG/ML VIAL IV PRN ×2 (03:55→10:10)
[2021-02-14 04:00] VITALS: BP 106/72
[2021-02-14] MEDS: HYDROMORPHONE 1MG/1ML INJ IV PRN ×3 (05:00→17:25)
[2021-02-14 07:47] VITALS: BP 109/71
[2021-02-14 07:59] VITALS: BP 109/71
[2021-02-14] MEDS: SEVELAMER CARBONATE 800 MG TAB PO SCH ×3 (08:33→17:29)
[2021-02-14] MEDS: ASPIRIN 81 MG ENTERIC COATED PO SCH (08:33)
[2021-02-14] MEDS: CARVEDILOL 12.5 MG TAB PO SCH (08:34)
[2021-02-14] MEDS: VALSARTAN/SACUBITRIL 24MG/26MG 1 EA TAB PO SCH (08:34)
[2021-02-14] MEDS ORDERED: MELOXICAM 7.5 MG TAB PO ONE (09:00)
[2021-02-14 11:13] VITALS: BP 112/75
[2021-02-14 15:20] VITALS: BP 110/71
[2021-02-14] MEDS ORDERED: RENVELA800 MG PO (15:42)
[2021-02-14] MEDS ORDERED: ASPIRIN EC81 MG PO (15:42)
[2021-02-14] MEDS ORDERED: COREG12.5 MG PO (15:42)
[2021-02-14] MEDS ORDERED: Valsartan/Sacubitril 24MG/26MG PO (15:42)
[2021-02-14] MEDS ORDERED: NIFEDIPINE ER30 M1 PO (15:42)
== END 2021-02-14 17:56 | disposition home or self-care (01) | DRG 291 ==
LOC: ER 23:40 → ERHOLD 02-11 01:55 → IMCU 02-11 10:12 → MED/SURG 02-12 14:21
PROVIDERS: ADMIT Internal Medicine; ATTEND Internal Medicine
PROC: 5A1D70Z Performance of Urinary Filtration, Intermittent, Less than 6 Hours Per Day (ICD-10-PCS; principal; 2021-02-11)
DX: I13.2 Hypertensive heart and chronic kidney disease with heart failure and with stage 5 chronic kidney disease, or end stage renal disease (principal); I50.23 Acute on chronic systolic (congestive) heart failure; N18.6 End stage renal disease; K29.70 Gastritis, unspecified, without bleeding; I42.8 Other cardiomyopathies; K31.84 Gastroparesis; I25.10 Atherosclerotic heart disease of native coronary artery without angina pectoris; F41.0 Panic disorder [episodic paroxysmal anxiety]; F41.9 Anxiety disorder, unspecified; E66.9 Obesity, unspecified; Z68.34 Body mass index [BMI] 34.0-34.9, adult; Z20.822 Contact with and (suspected) exposure to COVID-19; Z88.5 Allergy status to narcotic agent
CPT/HCPCS: 36415; 71045; 80053; 80061; 80307; 81001; 82150; 82550; 82553; 83036; 83605; 83690; 83880; 84443; 84484; 85025; 85651; 86039; 86141; 90962; 93005; 94799; 99284; J1170; J1200; J2405; J2765; J7030; Q0177; U0002

== ENCOUNTER 2021-04-02 01:04 | Emergency (ER) | payer BC, MEDICARE ==
[~2021-04-02 01:04] MED LIST changes: +ASPIRIN EC81 MG PO; +RENVELA800 MG PO; +Valsartan/Sacubitril 24MG/26MG PO
== END 2021-04-02 01:45 | disposition home or self-care (01) ==
LOC: ER 01:30
DX: T82.848A Pain due to vascular prosthetic devices, implants and grafts, initial encounter (principal); R60.9 Edema, unspecified; I12.0 Hypertensive chronic kidney disease with stage 5 chronic kidney disease or end stage renal disease; N18.6 End stage renal disease; Z99.2 Dependence on renal dialysis
CPT/HCPCS: 99282

== ENCOUNTER 2021-05-12 20:08 | Emergency (ER) | payer MEDICARE ==
[~2021-05-12] VITALS: Ht 190.5 cm; Wt 124.7 kg
[2021-05-12] MEDS ORDERED: HYDROCODONE/APAP 10MG-325MG TAB PO ONE (21:15)
[2021-05-12 21:35] LABS: BASOPHILS % 0.5 % (0.0-1.0); HEMATOCRIT 28.7 % (38.2-49.6); HEMOGLOBIN 9.3 g/dL (14.0-18.0); LYMPHOCYTES # (AUTO) 0.8 (1.0-3.2); LYMPHOCYTES % 18.8 % (18.0-39.1); MEAN CORPUSCULAR HEMOGLOBIN 30.5 pg (28-32); MEAN CORPUSCULAR HGB CONC 32.4 g/dL (31-35); MEAN CORPUSCULAR VOLUME 94.1 fL (81-99); MONOCYTES # (AUTO) 0.4 (0.2-0.8); MONOCYTES % 8.6 % (4.4-11.3); NEUTROPHILS % 70.9 % (38.7-80.0); PLATELET COUNT 111 x10e3/uL (140-360); RED BLOOD COUNT 3.05 x10e6/uL (4.3-5.7); RED CELL DISTRIBUTION WIDTH 17.8 % (11.7-14.4)
[2021-05-12 21:44] LABS: ALBUMIN 3.6 g/dL (3.5-5.0); ALBUMIN/GLOBULIN RATIO 0.9 (0.8-2.0); ANION GAP 17.3 mmol/L (8-16); CALCIUM 9.2 mg/dL (8.4-10.2); CREATININE, SERUM 5.91 mg/dL (0.72-1.25); POTASSIUM 4.3 mmol/L (3.5-5.1)
[2021-05-12 21:50] LABS: CREATINE KINASE MB 2.6 ng/mL (0-5.0)
[2021-05-12] MEDS ORDERED: ONDANSETRON HCL INJ 2MG/ML 2ML 2 MG/ML VIAL IV STA (22:16)
[2021-05-12] MEDS ORDERED: ONDANSETRON HCL INJ 2MG/ML 2ML 2 MG/ML VIAL ONE (22:18)
[2021-05-12] MEDS ORDERED: FENTANYL CITRATE/PF 100MCG/2 ML INJ ONE (22:18)
[2021-05-12 22:19] LABS: INR 1.22; PROTHROMBIN TIME 16.5 seconds (11.9-14.5)
[2021-05-12 22:20] LABS: PARTIAL THROMBOPLASTIN TIME 31.8 seconds (23.8-35.5)
[2021-05-12] MEDS ORDERED: FENTANYL CITRATE/PF 100MCG/2 ML INJ IV ONE (22:30)
[2021-05-13] MEDS ORDERED: NITROGLYCERIN 0.4 MG SUBL SL ONE
[2021-05-13] MEDS ORDERED: HYDROXYZINE HCL 25 MG TAB PO ONE
[2021-05-13 00:53] LABS: CLARITY,URINE CLEAR (CLEAR); COLOR,URINE YELLOW (YELLOW); KETONES,URINE NEGATIVE (NEGATIVE); LEUKOCYTE ESTERASE ,URINE NEGATIVE (NEGATIVE); NITRITE,URINE NEGATIVE (NEGATIVE); PROTEIN,URINE DIPSTICK >=300 (NEGATIVE); URINE UROBILINOGEN 0.2 mg/dL (0.2 - 1)
[2021-05-13 00:55] LABS: AMPHETAMINES SCREEN,URINE NEGATIVE (NEGATIVE); BENZODIAZEPINES SCREEN,URINE POSITIVE (NEGATIVE); PHENCYCLIDINE SCREEN,URINE NEGATIVE (NEGATIVE)
[2021-05-13 00:57] LABS: BACTERIA,URINE FEW /HPF; EPITHELIAL CELLS,URINE FEW /LPF; WBC,URINE (MAN) 0-5 /HPF (0-5)
[2021-05-13 02:11] VITALS: BP 148/98
== END 2021-05-13 02:08 | disposition home or self-care (01) ==
LOC: ER 20:22
DX: R07.89 Other chest pain (principal); I12.0 Hypertensive chronic kidney disease with stage 5 chronic kidney disease or end stage renal disease; N18.6 End stage renal disease; Z99.2 Dependence on renal dialysis; D64.9 Anemia, unspecified
CPT/HCPCS: 36415; 71250; 74176; 80053; 80307; 81001; 82550; 82553; 83880; 84484; 85025; 85610; 85730; 93005 ×2; 99284; J2405; J3010; J3410

== ENCOUNTER 2021-07-13 08:44 | Emergency (ER) | payer MEDICARE ==
[~2021-07-13] VITALS: Ht 190.5 cm; Wt 124.7 kg
[2021-07-13] MEDS ORDERED: SODIUM CHLORIDE 0.9% 500ML 500 ML IV STA (08:58)
[2021-07-13] MEDS ORDERED: ACETAMINOPHEN 1000 MG/100 ML IV STA (08:58)
[2021-07-13] MEDS ORDERED: ONDANSETRON HCL INJ 2MG/ML 2ML 2 MG/ML VIAL IV STA (09:02)
[2021-07-13 09:34] LABS: BASOPHILS % 0.5 % (0.0-1.0); EOSINOPHILS % 0.5 % (0.0-6.0); HEMATOCRIT 32.3 % (38.2-49.6); HEMOGLOBIN 10.1 g/dL (14.0-18.0); LYMPHOCYTES # (AUTO) 0.5 (1.0-3.2); MEAN CORPUSCULAR HEMOGLOBIN 31.2 pg (28-32); MEAN CORPUSCULAR HGB CONC 31.3 g/dL (31-35); MEAN CORPUSCULAR VOLUME 99.7 fL (81-99); MONOCYTES # (AUTO) 0.4 (0.2-0.8); NEUTROPHILS # (AUTO) 3.4 (2.1-6.9); NEUTROPHILS % 77.5 % (38.7-80.0); PLATELET COUNT 105 x10e3/uL (140-360); RED BLOOD COUNT 3.24 x10e6/uL (4.3-5.7); RED CELL DISTRIBUTION WIDTH 16.9 % (11.7-14.4)
[2021-07-13 09:58] LABS: INR 1.4; PROTHROMBIN TIME 18.3 seconds (11.9-14.5)
[2021-07-13 09:59] LABS: PARTIAL THROMBOPLASTIN TIME 32.6 seconds (23.8-35.5)
[2021-07-13 10:09] LABS: ALBUMIN 3.6 g/dL (3.5-5.0); ALBUMIN/GLOBULIN RATIO 0.9 (0.8-2.0); ANION GAP 22.6 mmol/L (8-16); CALCIUM 9.9 mg/dL (8.4-10.2); CREATININE, SERUM 7.76 mg/dL (0.72-1.25); POTASSIUM 4.6 mmol/L (3.5-5.1)
[2021-07-13 10:18] LABS: CREATINE KINASE MB 4.2 ng/mL (0-5.0)
[2021-07-13] MEDS ORDERED: NEURONTIN300 MG PO (10:38)
[2021-07-13 10:45] VITALS: BP 152/93
== END 2021-07-13 10:45 | disposition home or self-care (01) ==
LOC: ER 09:04
DX: R10.32 Left lower quadrant pain (principal); R11.2 Nausea with vomiting, unspecified; I12.0 Hypertensive chronic kidney disease with stage 5 chronic kidney disease or end stage renal disease; N18.6 End stage renal disease; Z99.2 Dependence on renal dialysis; D64.9 Anemia, unspecified
CPT/HCPCS: 36415; 71045; 74176; 80053; 82550; 82553; 83690; 84484; 85025; 85610; 85730; 93005; 99284; J0131; J2405; J7040

== ENCOUNTER 2021-08-07 16:50 | Inpatient (IN) | payer MEDICARE, OTHER ==
[~2021-08-07] VITALS: Ht 190.5 cm; Wt 120.2 kg
[~2021-08-07 16:50] MED LIST changes: +NEURONTIN300 MG PO
[2021-08-07] MEDS ORDERED: ASPIRIN 81 MG CHEW TAB PO ONE (17:00)
[2021-08-07 17:30] LABS: BASOPHILS % 0.4 % (0.0-1.0); EOSINOPHILS # (AUTO) 0.2 (0.0-0.4); EOSINOPHILS % 3.2 % (0.0-6.0); HEMATOCRIT 30.4 % (38.2-49.6); HEMOGLOBIN 9.3 g/dL (14.0-18.0); LYMPHOCYTES # (AUTO) 0.5 (1.0-3.2); LYMPHOCYTES % 10.3 % (18.0-39.1); MEAN CORPUSCULAR HEMOGLOBIN 31.1 pg (28-32); MEAN CORPUSCULAR HGB CONC 30.6 g/dL (31-35); MEAN CORPUSCULAR VOLUME 101.7 fL (81-99); MONOCYTES # (AUTO) 0.4 (0.2-0.8); MONOCYTES % 8.1 % (4.4-11.3); NEUTROPHILS # (AUTO) 3.6 (2.1-6.9); NEUTROPHILS % 77.4 % (38.7-80.0); PLATELET COUNT 94 x10e3/uL (140-360); RED BLOOD COUNT 2.99 x10e6/uL (4.3-5.7); RED CELL DISTRIBUTION WIDTH 17.6 % (11.7-14.4)
[2021-08-07 17:49] LABS: ALBUMIN 3.4 g/dL (3.5-5.0); ALBUMIN/GLOBULIN RATIO 0.9 (0.8-2.0); CALCIUM 9.3 mg/dL (8.4-10.2); CREATININE, SERUM 8.77 mg/dL (0.72-1.25)
[2021-08-07 17:55] LABS: CREATINE KINASE MB 5.8 ng/mL (0-5.0)
[2021-08-07 17:58] LABS: ABG HCO3 20 mmol/L (22-26); ABG PCO2 29 mmHg (35-45); ABG PH 7.46 (7.35-7.45); ABG PO2 57 mmHg (80-105); ABG TCO2 21
[2021-08-07] MEDS ORDERED: Morphine 4mg INJECTION 4 MG/ML INJ IV STA (18:14)
[2021-08-07] MEDS ORDERED: ONDANSETRON HCL INJ 2MG/ML 2ML 2 MG/ML VIAL IV STA (18:14)
[2021-08-07] MEDS ORDERED: ONDANSETRON HCL INJ 2MG/ML 2ML 2 MG/ML VIAL IV PRN (18:45)
[2021-08-07 18:46] LABS: AMPHETAMINES SCREEN,URINE NEGATIVE (NEGATIVE); BENZODIAZEPINES SCREEN,URINE POSITIVE (NEGATIVE); PHENCYCLIDINE SCREEN,URINE NEGATIVE (NEGATIVE)
[2021-08-07] MEDS ORDERED: SEVELAMER CARB800 MG PO (18:49)
[2021-08-07] MEDS ORDERED: LOSARTAN POTASS50 MG PO (18:49)
[2021-08-07 19:12] LABS: CLARITY,URINE SL CLOUDY (CLEAR); COLOR,URINE STRAW (YELLOW); KETONES,URINE NEGATIVE (NEGATIVE); LEUKOCYTE ESTERASE ,URINE NEGATIVE (NEGATIVE); NITRITE,URINE NEGATIVE (NEGATIVE); PROTEIN,URINE DIPSTICK >=300 (NEGATIVE); URINE UROBILINOGEN 0.2 mg/dL (0.2 - 1)
[2021-08-07 19:23] LABS: BACTERIA,URINE FEW /HPF; RBC,URINE 0-5 /HPF (0-5); WBC,URINE (MAN) 0-5 /HPF (0-5)
[2021-08-07 19:24] LABS: AMORPHOUS SEDIMENT,URINE MODERATE (FEW)
[2021-08-07 21:45] VITALS: BP_SYST 140; BP_SYST 142; BP_DIAS 103; BP_DIAS 94
[2021-08-07 21:50] VITALS: BP 142/103
[2021-08-07] MEDS: Morphine 4mg INJECTION 4 MG/ML INJ IV PRN (21:56)
[2021-08-07 22:00] VITALS: BP 136/107
[2021-08-07] MEDS: DIPHENHYDRAMINE HCL 25 MG CAP PO PRN (22:23)
[2021-08-07 23:30] VITALS: BP 148/109
[2021-08-08] VITALS (19 sets, daily range): BP systolic 134–176; BP diastolic 95–120
[2021-08-08 05:28] LABS: BASOPHILS % 0.8 % (0.0-1.0); EOSINOPHILS # (AUTO) 0.2 (0.0-0.4); EOSINOPHILS % 4.7 % (0.0-6.0); HEMOGLOBIN 9.3 g/dL (14.0-18.0); LYMPHOCYTES # (AUTO) 0.7 (1.0-3.2); LYMPHOCYTES % 15.5 % (18.0-39.1); MEAN CORPUSCULAR HEMOGLOBIN 31.2 pg (28-32); MEAN CORPUSCULAR VOLUME 100.7 fL (81-99); MONOCYTES # (AUTO) 0.5 (0.2-0.8); MONOCYTES % 11.2 % (4.4-11.3); NEUTROPHILS # (AUTO) 3.2 (2.1-6.9); NEUTROPHILS % 67.4 % (38.7-80.0); PLATELET COUNT 90 x10e3/uL (140-360); RED BLOOD COUNT 2.98 x10e6/uL (4.3-5.7); RED CELL DISTRIBUTION WIDTH 17.5 % (11.7-14.4)
[2021-08-08 05:54] LABS: CREATINE KINASE MB 5.6 ng/mL (0-5.0)
[2021-08-08] MEDS: Morphine 4mg INJECTION 4 MG/ML INJ IV PRN (06:08)
[2021-08-08 08:51] LABS: ALBUMIN 3.5 g/dL (3.5-5.0); ALBUMIN/GLOBULIN RATIO 0.9 (0.8-2.0); CALCIUM 9.3 mg/dL (8.4-10.2); CREATININE, SERUM 9.75 mg/dL (0.72-1.25)
[2021-08-08] MEDS: CARVEDILOL 12.5 MG TAB PO SCH ×2 (09:00→18:34)
[2021-08-08] MEDS: PANTOPRAZOLE SOD 40 MG TABEC PO SCH ×2 (09:02→16:08)
[2021-08-08] MEDS: HEPARIN SOD (PORCINE) 5,000 UNIT/ML VIAL SC SCH ×2 (09:03→20:59)
[2021-08-08] MEDS ORDERED: SODIUM CHLORIDE 0.9% 1000ML 2,000 ML ONE (09:31)
[2021-08-08] MEDS ORDERED: HYDROCODONE/APAP 7.5MG-325MG 1 EA TAB PO PRN (15:00)
[2021-08-08] MEDS ORDERED: Morphine 2mg Syringe 2 MG/ML SYR IV ONE ×2 (15:15→18:25)
[2021-08-08] MEDS: HYDROXYZINE PAMOATE 25 MG CAP PO PRN (16:35)
[2021-08-08 17:23] LABS: CREATINE KINASE MB 4.9 ng/mL (0-5.0)
[2021-08-08 19:38] LABS: CREATINE KINASE MB 5.7 ng/mL (0-5.0)
[2021-08-08] MEDS: Morphine 2mg Syringe 2 MG/ML SYR IV PRN (20:42)
[2021-08-09] MEDS: Morphine 2mg Syringe 2 MG/ML SYR IV PRN ×2 (00:42→07:08)
[2021-08-09 03:00] VITALS: BP 145/116
[2021-08-09] MEDS: PANTOPRAZOLE SOD 40 MG TABEC PO SCH ×2 (07:08→16:30)
[2021-08-09 07:36] LABS: CALCIUM 8.8 mg/dL (8.4-10.2); CREATININE, SERUM 7.61 mg/dL (0.72-1.25)
[2021-08-09 08:01] LABS: CREATINE KINASE MB 4.7 ng/mL (0-5.0)
[2021-08-09 08:28] VITALS: BP 147/104
[2021-08-09] MEDS ORDERED: ACETAMINOPHEN 325 MG TAB PO PRN (08:30)
[2021-08-09 08:34] VITALS: BP 147/104
[2021-08-09] MEDS: CARVEDILOL 12.5 MG TAB PO SCH ×2 (08:39→21:08)
[2021-08-09] MEDS: HEPARIN SOD (PORCINE) 5,000 UNIT/ML VIAL SC SCH ×2 (08:42→21:10)
[2021-08-09] MEDS: ONDANSETRON HCL 4 MG ORAL DISINTEGRATING TAB PO PRN ×2 (08:43→11:55)
[2021-08-09] MEDS: HYDROXYZINE PAMOATE 25 MG CAP PO PRN (09:29)
[2021-08-09] MEDS: HYDROMORPHONE 1MG/1ML INJ IV PRN ×2 (11:55→21:13)
[2021-08-09 12:33] VITALS: BP 142/97
[2021-08-09] MEDS ORDERED: SODIUM CHLORIDE 0.9% 1000ML 1,000 ML ONE (13:38)
[2021-08-09] MEDS: DIPHENHYDRAMINE HCL 25 MG CAP PO PRN (14:05)
[2021-08-09 14:47] LABS: CREATINE KINASE MB 4.8 ng/mL (0-5.0)
[2021-08-09 16:10] VITALS: BP 123/71
[2021-08-09 20:00] VITALS: BP 128/94
[2021-08-10] VITALS: BP 128/86
[2021-08-10] MEDS: HYDROMORPHONE 1MG/1ML INJ IV PRN ×2 (02:21→08:25)
[2021-08-10] MEDS: DIPHENHYDRAMINE HCL 25 MG CAP PO PRN (02:31)
[2021-08-10 04:00] VITALS: BP 132/85
[2021-08-10] MEDS: PANTOPRAZOLE SOD 40 MG TABEC PO SCH (07:30)
[2021-08-10] MEDS ORDERED: ULTRAM50 MG PO (08:24)
[2021-08-10] MEDS: ONDANSETRON HCL 4 MG ORAL DISINTEGRATING TAB PO PRN (08:34)
[2021-08-10] MEDS: CARVEDILOL 12.5 MG TAB PO SCH (08:35)
[2021-08-10] MEDS: HEPARIN SOD (PORCINE) 5,000 UNIT/ML VIAL SC SCH (08:36)
[2021-08-10 08:38] VITALS: BP 128/93
[2021-08-10 08:56] VITALS: BP 128/93
[2021-08-10 12:18] VITALS: BP 112/84
== END 2021-08-10 12:45 | disposition home or self-care (01) | DRG 291 ==
LOC: ER 17:00 → ERHOLD 19:27 → ICU 21:52 → MED/SURG 08-09 11:32
PROVIDERS: ADMIT Internal Medicine; ATTEND Internal Medicine
PROC: 5A09357 Assistance with Respiratory Ventilation, Less than 24 Consecutive Hours, Continuous Positive Airway Pressure (ICD-10-PCS; 2021-08-07)
PROC: 5A1D70Z Performance of Urinary Filtration, Intermittent, Less than 6 Hours Per Day (ICD-10-PCS; principal; 2021-08-08)
DX: I13.2 Hypertensive heart and chronic kidney disease with heart failure and with stage 5 chronic kidney disease, or end stage renal disease (principal); N18.6 End stage renal disease; J96.01 Acute respiratory failure with hypoxia; I50.23 Acute on chronic systolic (congestive) heart failure; E87.5 Hyperkalemia; E11.22 Type 2 diabetes mellitus with diabetic chronic kidney disease; I25.10 Atherosclerotic heart disease of native coronary artery without angina pectoris; E66.01 Morbid (severe) obesity due to excess calories; E11.43 Type 2 diabetes mellitus with diabetic autonomic (poly)neuropathy; K31.84 Gastroparesis; R07.89 Other chest pain; D63.1 Anemia in chronic kidney disease; Z68.34 Body mass index [BMI] 34.0-34.9, adult; Z99.2 Dependence on renal dialysis; Z90.49 Acquired absence of other specified parts of digestive tract
CPT/HCPCS: 36415; 36600; 71045; 80048; 80053; 80307; 81001; 82140; 82550; 82553; 82805; 82948; 83605; 83880; 84484; 85025; 86705; 86706; 87040; 87340; 90962; 93005; 93306; 94660; 94799; 99284; J1170; J1644; J2270; J2405; J7030; Q0162; Q0177

== ENCOUNTER 2021-08-12 16:25 | Emergency (ER) | payer OTHER ==
[~2021-08-12] VITALS: Ht 190.5 cm; Wt 120.2 kg
[~2021-08-12 16:25] MED LIST changes: +LOSARTAN POTASS50 MG PO; +SEVELAMER CARB800 MG PO; +ULTRAM50 MG PO
[2021-08-12 17:25] LABS: BASOPHILS % 0.4 % (0.0-1.0); EOSINOPHILS # (AUTO) 0.1 (0.0-0.4); EOSINOPHILS % 1.6 % (0.0-6.0); HEMATOCRIT 31.1 % (38.2-49.6); HEMOGLOBIN 9.6 g/dL (14.0-18.0); LYMPHOCYTES # (AUTO) 0.4 (1.0-3.2); LYMPHOCYTES % 8.1 % (18.0-39.1); MEAN CORPUSCULAR HEMOGLOBIN 31.1 pg (28-32); MEAN CORPUSCULAR HGB CONC 30.9 g/dL (31-35); MEAN CORPUSCULAR VOLUME 100.6 fL (81-99); MONOCYTES # (AUTO) 0.6 (0.2-0.8); MONOCYTES % 12.6 % (4.4-11.3); NEUTROPHILS # (AUTO) 3.8 (2.1-6.9); NEUTROPHILS % 76.7 % (38.7-80.0); PLATELET COUNT 112 x10e3/uL (140-360); RED BLOOD COUNT 3.09 x10e6/uL (4.3-5.7); RED CELL DISTRIBUTION WIDTH 18.2 % (11.7-14.4)
[2021-08-12 17:52] LABS: ALBUMIN 3.3 g/dL (3.5-5.0); ANION GAP 21.1 mmol/L (8-16); CALCIUM 8.7 mg/dL (8.4-10.2); CREATININE, SERUM 8.37 mg/dL (0.72-1.25); POTASSIUM 4.1 mmol/L (3.5-5.1)
[2021-08-12 17:58] LABS: CREATINE KINASE MB 5.2 ng/mL (0-5.0)
[2021-08-12] MEDS ORDERED: HYDROCODONE/APAP 5MG-325MG TAB PO ONE (18:45)
== END 2021-08-12 19:50 | disposition home or self-care (01) ==
LOC: ER 16:46
DX: R06.02 Shortness of breath (principal); R07.9 Chest pain, unspecified; I12.0 Hypertensive chronic kidney disease with stage 5 chronic kidney disease or end stage renal disease; N18.6 End stage renal disease; Z99.2 Dependence on renal dialysis; I50.9 Heart failure, unspecified; D64.9 Anemia, unspecified; R94.31 Abnormal electrocardiogram [ECG] [EKG]
CPT/HCPCS: 36415; 71045; 80053; 82550; 82553; 84484; 85025; 93005; 99284

== ENCOUNTER 2021-12-07 21:25 | Emergency (ER) | payer MEDICARE, OTHER ==
[~2021-12-07] VITALS: Ht 190.5 cm; Wt 113.9 kg
[2021-12-07] MEDS ORDERED: HYDROCODONE/APAP 5MG-325MG TAB PO ONE (22:15)
[2021-12-07] MEDS ORDERED: ONDANSETRON HCL 4 MG ORAL DISINTEGRATING TAB PO ONE (22:15)
[2021-12-07] MEDS ORDERED: ONDANSETRON HCL 4 MG ORAL DISINTEGRATING TAB ONE (22:45)
[2021-12-07] MEDS ORDERED: HYDROCODONE/APAP 5MG-325MG TAB ONE (22:45)
[2021-12-07] MEDS ORDERED: TRAZODONE HCL100 MG PO (23:25)
[2021-12-07 23:47] VITALS: BP 186/108
== END 2021-12-07 23:31 | disposition home or self-care (01) ==
LOC: FSED 22:01
DX: G89.18 Other acute postprocedural pain (principal); R07.81 Pleurodynia; I12.9 Hypertensive chronic kidney disease with stage 1 through stage 4 chronic kidney disease, or unspecified chronic kidney disease; N18.9 Chronic kidney disease, unspecified; Z99.2 Dependence on renal dialysis; D64.9 Anemia, unspecified; I50.9 Heart failure, unspecified; R94.31 Abnormal electrocardiogram [ECG] [EKG]
CPT/HCPCS: 71046; 93005; 99284; Q0162

== ENCOUNTER 2021-12-12 00:34 | Emergency (ER) | payer MEDICARE, OTHER ==
[~2021-12-12] VITALS: Ht 190.5 cm; Wt 113.9 kg
[~2021-12-12 00:34] MED LIST changes: +TRAZODONE HCL100 MG PO
[2021-12-12] MEDS ORDERED: HYDROCODONE/APAP 5MG-325MG TAB PO ONE (01:00)
[2021-12-12] MEDS ORDERED: HYDROCODONE/APAP 5MG-325MG TAB ONE (01:17)
[2021-12-12] MEDS ORDERED: PREDNISONE50 MG PO (02:22)
[2021-12-12] MEDS ORDERED: CEPHALEXIN500 MG PO (02:22)
[2021-12-12] MEDS ORDERED: METHYLPREDNISOLONE SOD SUCC 125 MG/2ML VIAL IV ONE (02:30)
[2021-12-12] MEDS ORDERED: GABAPENTIN400 MG PO (02:31)
[2021-12-12] MEDS ORDERED: METHYLPREDNISOLONE SOD SUCC 125 MG/2ML VIAL ONE (02:35)
[2021-12-12] MEDS ORDERED: CEFTRIAXONE 1 GM VIAL ONE (02:35)
[2021-12-12 02:38] VITALS: BP 205/120
== END 2021-12-12 02:38 | disposition home or self-care (01) ==
LOC: FSED 00:46
DX: J18.9 Pneumonia, unspecified organism (principal); I12.0 Hypertensive chronic kidney disease with stage 5 chronic kidney disease or end stage renal disease; N18.6 End stage renal disease; Z99.2 Dependence on renal dialysis; D64.9 Anemia, unspecified
CPT/HCPCS: 71045; 80053; 84484; 85025; 93005; 96374; 99284; J0696; J2930

== ENCOUNTER 2022-01-18 16:49 | Observation (INO) | payer MEDICARE, OTHER ==
[~2022-01-18] VITALS: Ht 190.5 cm; Wt 113.9 kg
[~2022-01-18 16:49] MED LIST changes: +CEPHALEXIN500 MG PO; +GABAPENTIN400 MG PO; +PREDNISONE50 MG PO
[2022-01-18] MEDS ORDERED: ONDANSETRON HCL INJ 2MG/ML 2ML 2 MG/ML VIAL IV STA (18:26)
[2022-01-18] MEDS ORDERED: Morphine 4mg INJECTION 4 MG/ML INJ IV ONE (18:30)
[2022-01-18 18:43] LABS: BASOPHILS % 0.3 % (0.0-1.0); EOSINOPHILS # (AUTO) 0.1 (0.0-0.4); EOSINOPHILS % 2.3 % (0.0-6.0); HEMATOCRIT 29.3 % (38.2-49.6); LYMPHOCYTES # (AUTO) 0.7 (1.0-3.2); LYMPHOCYTES % 19.4 % (18.0-39.1); MEAN CORPUSCULAR HEMOGLOBIN 31.4 pg (28-32); MEAN CORPUSCULAR HGB CONC 30.7 g/dL (31-35); MEAN CORPUSCULAR VOLUME 102.1 fL (81-99); MONOCYTES # (AUTO) 0.3 (0.2-0.8); MONOCYTES % 8.4 % (4.4-11.3); NEUTROPHILS # (AUTO) 2.4 (2.1-6.9); NEUTROPHILS % 69.3 % (38.7-80.0); PLATELET COUNT 138 x10e3/uL (140-360); RED BLOOD COUNT 2.87 x10e6/uL (4.3-5.7); RED CELL DISTRIBUTION WIDTH 14.5 % (11.7-14.4)
[2022-01-18 19:06] LABS: ALBUMIN 4.4 g/dL (3.5-5.0); ALBUMIN/GLOBULIN RATIO 1.2 (0.8-2.0); ANION GAP 27.4 mmol/L (8-16); CALCIUM 9.2 mg/dL (8.4-10.2); CREATININE, SERUM 7.59 mg/dL (0.72-1.25); POTASSIUM 4.4 mmol/L (3.5-5.1)
[2022-01-18 19:11] LABS: CREATINE KINASE MB 1.9 ng/mL (0-5.0)
[2022-01-18 19:35] LABS: INR 1.03; PROTHROMBIN TIME 14.3 seconds (11.9-14.5)
[2022-01-18] MEDS ORDERED: HEPARIN SOD (PORCINE) 5,000 UNIT/ML VIAL IV ONE (20:15)
[2022-01-18] MEDS ORDERED: HYDRALAZINE HCL 20 MG/ML VIAL IV PRN (20:30)
[2022-01-18] MEDS: HEPARIN 25,000 UNIT 1,500 UNIT in DEXTROSE 5% 250ML 250 ML IV SCH (20:40)
[2022-01-18] MEDS ORDERED: HEPARIN 25,000 UNIT DRIP IV ONE (20:44)
[2022-01-18] MEDS ORDERED: FENTANYL CITRATE/PF 100MCG/2 ML INJ IV ONE (20:45)
[2022-01-18] MEDS ORDERED: FENTANYL CITRATE/PF 100MCG/2 ML INJ ONE (20:56)
[2022-01-18] MEDS ORDERED: POLYETHYLENE GLYCOL 3350 17 GM PACK PO PRN (21:45)
[2022-01-18] MEDS ORDERED: ACETAMINOPHEN 325 MG TAB PO PRN (21:45)
[2022-01-18] MEDS: Morphine 4mg INJECTION 4 MG/ML INJ IV PRN (23:34)
[2022-01-18] MEDS ORDERED: HYDROCODON-ACE1 EAC9 PO (23:56)
[2022-01-18] MEDS ORDERED: COREG12.5 MG PO (23:56)
[2022-01-18] MEDS ORDERED: TIZANIDINE HCL4 MG PO (23:56)
[2022-01-18 23:58] VITALS: BP 167/85
[2022-01-19] VITALS (7 sets, daily range): BP systolic 121–167; BP diastolic 74–99
[2022-01-19] MEDS: Morphine 4mg INJECTION 4 MG/ML INJ IV PRN ×4 (02:32→11:43)
[2022-01-19 03:31] LABS: INR 1.13; PROTHROMBIN TIME 15.4 seconds (11.9-14.5)
[2022-01-19] MEDS ORDERED: FAMOTIDINE 20 MG TAB PO SCH (07:30)
[2022-01-19 07:58] LABS: CREATINE KINASE MB 1.9 ng/mL (0-5.0)
[2022-01-19] MEDS: PANTOPRAZOLE SOD 40 MG TABEC PO SCH (08:00)
[2022-01-19] MEDS: ONDANSETRON HCL INJ 2MG/ML 2ML 2 MG/ML VIAL IV PRN ×4 (08:37→22:53)
[2022-01-19 09:09] LABS: INR 1.09
[2022-01-19 09:23] LABS: CHOL/HDL RATIO 3.9 (3.9-4.7)
[2022-01-19] MEDS: CARVEDILOL 12.5 MG TAB PO SCH ×2 (10:00→22:45)
[2022-01-19] MEDS: HYDROCODONE/APAP 10MG-325MG TAB PO PRN ×2 (10:00→15:43)
[2022-01-19] MEDS ORDERED: IOPAMIDOL 370 MG/ML 100 ML INFUS..BTL INJ ONE (10:18)
[2022-01-19] MEDS: HEPARIN 25,000 UNIT 1,500 UNIT in DEXTROSE 5% 250ML 250 ML IV SCH (11:49)
[2022-01-19] MEDS ORDERED: HEPARIN 25,000 UNIT DRIP IV ONE (11:56)
[2022-01-19] MEDS: HYDROMORPHONE 1MG/1ML INJ IV PRN ×3 (14:24→22:53)
[2022-01-19] MEDS ORDERED: SODIUM CHLORIDE 0.9% 1000ML 2,000 ML ONE (15:59)
[2022-01-19] MEDS ORDERED: DIPHENHYDRAMINE HCL INJ 50 MG/ML VIAL IV PRN (19:00)
[2022-01-19 21:25] LABS: CREATINE KINASE MB 2.1 ng/mL (0-5.0)
[2022-01-19] MEDS ORDERED: SENNA-S TABLET PO PRN (21:45)
[2022-01-20] VITALS (7 sets, daily range): BP systolic 110–158; BP diastolic 69–90
[2022-01-20] MEDS: ONDANSETRON HCL INJ 2MG/ML 2ML 2 MG/ML VIAL IV PRN ×4 (03:12→20:58)
[2022-01-20] MEDS: HYDROMORPHONE 1MG/1ML INJ IV PRN ×2 (03:12→10:05)
[2022-01-20] MEDS: HYDROCODONE/APAP 10MG-325MG TAB PO PRN ×2 (07:24→20:58)
[2022-01-20] MEDS: SEVELAMER CARBONATE 800 MG TAB PO SCH ×3 (08:00→16:09)
[2022-01-20] MEDS: POLYETHYLENE GLYCOL 3350 17 GM PACK PO SCH ×2 (09:59→16:25)
[2022-01-20] MEDS: DOCUSATE SODIUM 100 MG CAP PO SCH ×3 (09:59→22:00)
[2022-01-20] MEDS: PANTOPRAZOLE SOD 40 MG TABEC PO SCH (10:00)
[2022-01-20] MEDS: CARVEDILOL 12.5 MG TAB PO SCH ×2 (10:01→21:00)
[2022-01-20 12:21] LABS: BASOPHILS % 0.7 % (0.0-1.0); EOSINOPHILS # (AUTO) 0.1 (0.0-0.4); EOSINOPHILS % 2.4 % (0.0-6.0); HEMATOCRIT 26.9 % (38.2-49.6); HEMOGLOBIN 8.5 g/dL (14.0-18.0); LYMPHOCYTES # (AUTO) 0.6 (1.0-3.2); LYMPHOCYTES % 11.7 % (18.0-39.1); MEAN CORPUSCULAR HEMOGLOBIN 32.8 pg (28-32); MEAN CORPUSCULAR HGB CONC 31.6 g/dL (31-35); MEAN CORPUSCULAR VOLUME 103.9 fL (81-99); MONOCYTES # (AUTO) 0.7 (0.2-0.8); MONOCYTES % 11.9 % (4.4-11.3); NEUTROPHILS % 72.9 % (38.7-80.0); PLATELET COUNT 121 x10e3/uL (140-360); RED BLOOD COUNT 2.59 x10e6/uL (4.3-5.7); RED CELL DISTRIBUTION WIDTH 15.6 % (11.7-14.4)
[2022-01-20 13:03] LABS: ANION GAP 25.5 mmol/L (8-16); CALCIUM 9.2 mg/dL (8.4-10.2); CREATININE, SERUM 8.21 mg/dL (0.72-1.25); MAGNESIUM 2.1 MG/DL (1.3-2.1); PHOSPHORUS 8.2 MG/DL (2.3-4.7); POTASSIUM 5.5 mmol/L (3.5-5.1)
[2022-01-20] MEDS ORDERED: HYDROMORPHONE 1MG/1ML INJ IV PRN (15:30)
[2022-01-20] MEDS ORDERED: ACETAMINOPHEN-1 EAC4 PO (16:15)
[2022-01-20] MEDS ORDERED: ACETAMINOPHEN/CODEINE 300MG - 30MG TAB PO PRN (16:30)
[2022-01-20] MEDS ORDERED: SODIUM CHLORIDE 0.9% 1000ML 2,000 ML IV PRN (16:45)
[2022-01-21] VITALS: BP 175/95
[2022-01-21] MEDS ORDERED: HYDROMORPHONE 1MG/1ML INJ IV ONE (01:15)
[2022-01-21] MEDS: ONDANSETRON HCL INJ 2MG/ML 2ML 2 MG/ML VIAL IV PRN (01:45)
[2022-01-21] MEDS: HYDROCODONE/APAP 10MG-325MG TAB PO PRN (03:51)
[2022-01-21 04:00] VITALS: BP 174/97
[2022-01-21 05:34] LABS: BASOPHILS % 0.9 % (0.0-1.0); EOSINOPHILS # (AUTO) 0.1 (0.0-0.4); HEMATOCRIT 28.4 % (38.2-49.6); HEMOGLOBIN 8.8 g/dL (14.0-18.0); LYMPHOCYTES # (AUTO) 0.6 (1.0-3.2); LYMPHOCYTES % 17.1 % (18.0-39.1); MEAN CORPUSCULAR HEMOGLOBIN 32.4 pg (28-32); MEAN CORPUSCULAR VOLUME 104.4 fL (81-99); MONOCYTES # (AUTO) 0.4 (0.2-0.8); MONOCYTES % 12.3 % (4.4-11.3); NEUTROPHILS # (AUTO) 2.4 (2.1-6.9); NEUTROPHILS % 67.4 % (38.7-80.0); PLATELET COUNT 118 x10e3/uL (140-360); RED BLOOD COUNT 2.72 x10e6/uL (4.3-5.7); RED CELL DISTRIBUTION WIDTH 15.3 % (11.7-14.4)
[2022-01-21 06:05] LABS: ANION GAP 20.4 mmol/L (8-16); CALCIUM 9.2 mg/dL (8.4-10.2); CREATININE, SERUM 5.34 mg/dL (0.72-1.25); POTASSIUM 4.4 mmol/L (3.5-5.1)
== END 2022-01-21 08:28 | disposition home or self-care (01) ==
LOC: ER 17:05 → ERHOLD 20:22 → MED/SURG 22:38
PROVIDERS: ADMIT Internal Medicine; ATTEND Internal Medicine
DX: R07.89 Other chest pain (principal); I13.2 Hypertensive heart and chronic kidney disease with heart failure and with stage 5 chronic kidney disease, or end stage renal disease; I50.22 Chronic systolic (congestive) heart failure; N18.6 End stage renal disease; E11.22 Type 2 diabetes mellitus with diabetic chronic kidney disease; Z99.2 Dependence on renal dialysis; Z79.4 Long term (current) use of insulin; I25.10 Atherosclerotic heart disease of native coronary artery without angina pectoris; I42.8 Other cardiomyopathies; F41.9 Anxiety disorder, unspecified; D61.818 Other pancytopenia; Z20.822 Contact with and (suspected) exposure to COVID-19; E87.5 Hyperkalemia; D63.8 Anemia in other chronic diseases classified elsewhere; E11.43 Type 2 diabetes mellitus with diabetic autonomic (poly)neuropathy; K31.84 Gastroparesis; R79.89 Other specified abnormal findings of blood chemistry; E66.09 Other obesity due to excess calories; Z68.31 Body mass index [BMI] 31.0-31.9, adult
CPT/HCPCS: 36415 ×4; 71046; 71260; 73718; 80048 ×2; 80053; 80061; 82550 ×2; 82553 ×2; 83735; 84100; 84484 ×2; 85025 ×3; 85379; 85610 ×2; 85730 ×2; 86704; 86706; 87340; 93005; 93926; 93971; 94799 ×3; 97116; 97161; 99284; G0378 ×4; J0360; J1170 ×3; J1200; J1644; J2270 ×2; J2405 ×4; J3010; J7030 ×2; Q9967; S0164 ×2; U0002

== ENCOUNTER 2022-04-05 21:32 | Emergency (ER) | payer MEDICARE, OTHER ==
[~2022-04-05] VITALS: Ht 190.5 cm; Wt 113.9 kg
[~2022-04-05 21:32] MED LIST changes: +ACETAMINOPHEN-1 EAC4 PO; +TIZANIDINE HCL4 MG PO
== END 2022-04-05 23:41 | disposition home or self-care (01) ==
LOC: ER 21:46
DX: R07.89 Other chest pain (principal); I12.0 Hypertensive chronic kidney disease with stage 5 chronic kidney disease or end stage renal disease; N18.6 End stage renal disease; Z99.2 Dependence on renal dialysis; I50.9 Heart failure, unspecified; D64.9 Anemia, unspecified
CPT/HCPCS: 71046; 99283

== ENCOUNTER 2022-07-19 05:06 | Inpatient (IN) | payer MEDICARE, OTHER ==
[2022-07-19] VITALS (8 sets, daily range): BP systolic 126–161; BP diastolic 86–93; PULSE 56–62; RESP 17–19; TEMP 97.2–98.9; O2SAT 93–100
[~2022-07-19] VITALS: Ht 190.5 cm; Wt 115.7 kg
[2022-07-19] MEDS ORDERED: ONDANSETRON HCL INJ 2MG/ML 2ML 2 MG/ML VIAL IV STA (05:20)
[2022-07-19] MEDS ORDERED: Morphine 2mg Syringe 2 MG/ML SYR IV ONE (05:30)
[2022-07-19 05:41] LABS: BASOPHILS % 0.7 % (0.0-1.0); EOSINOPHILS # (AUTO) 0.4 (0.0-0.4); EOSINOPHILS % 6.7 % (0.0-6.0); HEMATOCRIT 21.2 % (38.2-49.6); HEMOGLOBIN 9.5 g/dL (14.0-18.0); LYMPHOCYTES # (AUTO) 0.7 (1.0-3.2); LYMPHOCYTES % 12.6 % (18.0-39.1); MEAN CORPUSCULAR HEMOGLOBIN 45.7 pg (28-32); MEAN CORPUSCULAR HGB CONC 44.8 g/dL (31-35); MEAN CORPUSCULAR VOLUME 101.9 fL (81-99); MONOCYTES # (AUTO) 0.6 (0.2-0.8); MONOCYTES % 10.2 % (4.4-11.3); NEUTROPHILS % 69.6 % (38.7-80.0); PLATELET COUNT 106 x10e3/uL (140-360); RED BLOOD COUNT 2.08 x10e6/uL (4.3-5.7); RED CELL DISTRIBUTION WIDTH 16.9 % (11.7-14.4)
[2022-07-19 05:52] LABS: ALANINE AMINOTRANSFERASE 765 IU/L (0-55); ALBUMIN 3.6 g/dL (3.5-5.0); ALBUMIN/GLOBULIN RATIO 0.9 (0.8-2.0); ALKALINE PHOSPHATASE 156 IU/L (40-150); ANION GAP 22.4 mmol/L (8-16); BLOOD UREA NITROGEN 49 mg/dL (7-26); BUN/CREATININE RATIO 5 (6-25); CALCIUM 8.5 mg/dL (8.4-10.2); CARBON DIOXIDE 27 mmol/L (22-29); CHLORIDE 91 mmol/L (98-107); GLUCOSE 176 mg/dL (74-118); POTASSIUM 4.4 mmol/L (3.5-5.1); SODIUM 136 mmol/L (136-145)
[2022-07-19] MEDS ORDERED: IOPAMIDOL 370 MG/ML 100 ML INFUS..BTL INJ ONE (07:10)
[2022-07-19] MEDS ORDERED: HEPARIN SOD (PORCINE) 5,000 UNIT/ML VIAL IV ONE (08:15)
[2022-07-19] MEDS: HYDROMORPHONE 1MG/1ML INJ IV PRN ×5 (09:23→23:32)
[2022-07-19] MEDS ORDERED: HEPARIN 25,000 UNIT DRIP IV ONE (09:25)
[2022-07-19] MEDS ORDERED: SODIUM CHLORIDE 0.9% 1000ML 1,000 ML ONE (09:26)
[2022-07-19] MEDS: HEPARIN 25,000 UNIT/D5W 250ML 1,500 UNIT in DEXTROSE 5% 250ML 250 ML IV SCH (09:33)
[2022-07-19] MEDS ORDERED: SODIUM CHLORIDE 0.9% 1000ML 2,000 ML ONE (15:02)
[2022-07-19] MEDS ORDERED: HEPARIN SOD (PORCINE) 1000 UNIT/ML SDV ONE (15:03)
[2022-07-19] MEDS: PANTOPRAZOLE SOD 40 MG TABEC PO SCH (16:30)
[2022-07-19] MEDS: CARVEDILOL 12.5 MG TAB PO SCH (20:30)
[2022-07-20] VITALS (9 sets, daily range): BP systolic 121–155; BP diastolic 82–93; PULSE 56–68; RESP 17–22; TEMP 97.4–97.9; O2SAT 99–100
[2022-07-20] MEDS: HYDROMORPHONE 1MG/1ML INJ IV PRN ×6 (03:45→21:15)
[2022-07-20 05:48] LABS: BASOPHILS % 1.1 % (0.0-1.0); EOSINOPHILS # (AUTO) 0.3 (0.0-0.4); EOSINOPHILS % 9.4 % (0.0-6.0); HEMATOCRIT 24.4 % (38.2-49.6); HEMOGLOBIN 8.2 g/dL (14.0-18.0); LYMPHOCYTES # (AUTO) 0.6 (1.0-3.2); LYMPHOCYTES % 17.4 % (18.0-39.1); MEAN CORPUSCULAR HEMOGLOBIN 34.6 pg (28-32); MEAN CORPUSCULAR HGB CONC 33.6 g/dL (31-35); MONOCYTES # (AUTO) 0.4 (0.2-0.8); MONOCYTES % 11.7 % (4.4-11.3); NEUTROPHILS # (AUTO) 2.1 (2.1-6.9); NEUTROPHILS % 60.1 % (38.7-80.0); PLATELET COUNT 81 x10e3/uL (140-360); RED BLOOD COUNT 2.37 x10e6/uL (4.3-5.7); RED CELL DISTRIBUTION WIDTH 15.9 % (11.7-14.4)
[2022-07-20 06:09] LABS: ALBUMIN 3.4 g/dL (3.5-5.0); ALBUMIN/GLOBULIN RATIO 0.9 (0.8-2.0); CALCIUM 8.2 mg/dL (8.4-10.2); CREATININE, SERUM 8.63 mg/dL (0.72-1.25)
[2022-07-20] MEDS: HEPARIN 25,000 UNIT/D5W 250ML 1,500 UNIT in DEXTROSE 5% 250ML 250 ML IV SCH (07:47)
[2022-07-20] MEDS: PANTOPRAZOLE SOD 40 MG TABEC PO SCH ×2 (07:52→17:07)
[2022-07-20] MEDS: CARVEDILOL 12.5 MG TAB PO SCH ×2 (09:00→20:44)
[2022-07-20] MEDS ORDERED: SODIUM CHLORIDE 0.9% 1000ML 2,000 ML ONE (10:45)
[2022-07-20] MEDS: ONDANSETRON HCL INJ 2MG/ML 2ML 2 MG/ML VIAL IV PRN (11:28)
[2022-07-20] MEDS ORDERED: SODIUM CHLORIDE 0.9% 250ML 250 ML IV PRN (12:00)
[2022-07-20] MEDS ORDERED: SODIUM CHLORIDE 0.9% 1000ML 2,000 ML IV PRN (12:00)
[2022-07-20] MEDS ORDERED: HEPARIN SOD (PORCINE) 1000 UNIT/ML SDV IV PRN (12:00)
[2022-07-20] MEDS ORDERED: MANNITOL 25% 12.5GM/50 ML VIAL IV PRN (12:00)
[2022-07-20] MEDS ORDERED: ALBUMIN 25% 12.5GM 0.25 GM/ML BTL IV PRN (12:00)
[2022-07-21] VITALS (8 sets, daily range): BP systolic 116–173; BP diastolic 77–99; PULSE 19–72; RESP 17–22; TEMP 97–98.6; O2SAT 98–100
[2022-07-21] MEDS: HYDROMORPHONE 1MG/1ML INJ IV PRN ×8 (00:20→23:54)
[2022-07-21] MEDS: HEPARIN 25,000 UNIT/D5W 250ML 1,500 UNIT in DEXTROSE 5% 250ML 250 ML IV SCH (04:06)
[2022-07-21] MEDS: PANTOPRAZOLE SOD 40 MG TABEC PO SCH ×2 (08:33→16:01)
[2022-07-21] MEDS: CARVEDILOL 12.5 MG TAB PO SCH ×2 (08:33→20:21)
[2022-07-21] MEDS ORDERED: SENNOSIDES 8.6 MG TAB PO ONE (15:15)
[2022-07-21] MEDS: DOCUSATE SODIUM 100 MG CAP PO SCH (16:01)
[2022-07-21] MEDS: ONDANSETRON HCL INJ 2MG/ML 2ML 2 MG/ML VIAL IV PRN ×3 (16:01→23:54)
[2022-07-21 16:07] LABS: ALBUMIN 3.5 g/dL (3.5-5.0); ALBUMIN/GLOBULIN RATIO 0.9 (0.8-2.0); ANION GAP 17.6 mmol/L (8-16); CALCIUM 8.5 mg/dL (8.4-10.2); CREATININE, SERUM 7.76 mg/dL (0.72-1.25); POTASSIUM 4.6 mmol/L (3.5-5.1)
[2022-07-21 16:10] LABS: BASOPHILS % 0.8 % (0.0-1.0); EOSINOPHILS # (AUTO) 0.2 (0.0-0.4); EOSINOPHILS % 5.8 % (0.0-6.0); HEMATOCRIT 26.2 % (38.2-49.6); HEMOGLOBIN 8.7 g/dL (14.0-18.0); LYMPHOCYTES # (AUTO) 0.6 (1.0-3.2); LYMPHOCYTES % 14.8 % (18.0-39.1); MEAN CORPUSCULAR HEMOGLOBIN 33.9 pg (28-32); MEAN CORPUSCULAR HGB CONC 33.2 g/dL (31-35); MEAN CORPUSCULAR VOLUME 101.9 fL (81-99); MONOCYTES # (AUTO) 0.4 (0.2-0.8); MONOCYTES % 9.3 % (4.4-11.3); NEUTROPHILS # (AUTO) 2.8 (2.1-6.9); NEUTROPHILS % 69.3 % (38.7-80.0); PLATELET COUNT 89 x10e3/uL (140-360); RED BLOOD COUNT 2.57 x10e6/uL (4.3-5.7)
[2022-07-21] MEDS: APIXABAN 5 MG TABLET PO SCH (17:23)
[2022-07-21] MEDS ORDERED: HYDROCODONE/APAP 5MG-325MG TAB PO PRN (18:00)
[2022-07-22] VITALS (8 sets, daily range): BP systolic 138–177; BP diastolic 86–95; PULSE 18–86; RESP 18; TEMP 97.2–98.3; O2SAT 96–100
[2022-07-22] MEDS: HYDROMORPHONE 1MG/1ML INJ IV PRN ×6 (04:21→20:53)
[2022-07-22 05:23] LABS: BASOPHILS % 0.2 % (0.0-1.0); EOSINOPHILS # (AUTO) 0.1 (0.0-0.4); EOSINOPHILS % 1.7 % (0.0-6.0); HEMATOCRIT 23.9 % (38.2-49.6); HEMOGLOBIN 8.2 g/dL (14.0-18.0); LYMPHOCYTES # (AUTO) 0.5 (1.0-3.2); LYMPHOCYTES % 12.3 % (18.0-39.1); MEAN CORPUSCULAR HEMOGLOBIN 34.3 pg (28-32); MEAN CORPUSCULAR HGB CONC 34.3 g/dL (31-35); MONOCYTES # (AUTO) 0.3 (0.2-0.8); MONOCYTES % 7.6 % (4.4-11.3); NEUTROPHILS # (AUTO) 3.3 (2.1-6.9); NEUTROPHILS % 78.2 % (38.7-80.0); PLATELET COUNT 80 x10e3/uL (140-360); RED BLOOD COUNT 2.39 x10e6/uL (4.3-5.7); RED CELL DISTRIBUTION WIDTH 15.3 % (11.7-14.4)
[2022-07-22 05:44] LABS: ALBUMIN 3.4 g/dL (3.5-5.0); ALBUMIN/GLOBULIN RATIO 0.9 (0.8-2.0); ANION GAP 19.3 mmol/L (8-16); CALCIUM 8.4 mg/dL (8.4-10.2); CREATININE, SERUM 9.03 mg/dL (0.72-1.25); POTASSIUM 5.3 mmol/L (3.5-5.1)
[2022-07-22] MEDS: CARVEDILOL 12.5 MG TAB PO SCH ×2 (08:16→20:52)
[2022-07-22] MEDS: APIXABAN 5 MG TABLET PO SCH ×2 (08:17→15:51)
[2022-07-22] MEDS: PANTOPRAZOLE SOD 40 MG TABEC PO SCH ×2 (08:17→15:51)
[2022-07-22] MEDS: DOCUSATE SODIUM 100 MG CAP PO SCH ×2 (08:17→15:51)
[2022-07-22] MEDS: ONDANSETRON HCL INJ 2MG/ML 2ML 2 MG/ML VIAL IV PRN ×4 (08:18→22:44)
[2022-07-22] MEDS ORDERED: APIXAB 2.5 MG TABLET PO SCH (09:00)
[2022-07-22] MEDS ORDERED: TEMAZEPAM 15 MG CAP PO PRN (17:45)
[2022-07-22] MEDS ORDERED: MELATONIN 3 MG TAB PO PRN (17:45)
[2022-07-22] MEDS: HYDRALAZINE HCL 20 MG/ML VIAL IV PRN (17:56)
[2022-07-23] VITALS (8 sets, daily range): BP systolic 171–194; BP diastolic 91–102; PULSE 74–91; RESP 16–18; TEMP 97.4–98.6; O2SAT 97–100
[2022-07-23] MEDS: HYDROMORPHONE 1MG/1ML INJ IV PRN ×5 (00:10→22:44)
[2022-07-23] MEDS: ONDANSETRON HCL INJ 2MG/ML 2ML 2 MG/ML VIAL IV PRN ×6 (03:25→22:44)
[2022-07-23] MEDS: HYDRALAZINE HCL 20 MG/ML VIAL IV PRN ×2 (03:26→14:02)
[2022-07-23 06:06] LABS: BASOPHILS % 0.2 % (0.0-1.0); EOSINOPHILS % 0.7 % (0.0-6.0); HEMATOCRIT 25.1 % (38.2-49.6); HEMOGLOBIN 9.3 g/dL (14.0-18.0); LYMPHOCYTES # (AUTO) 0.5 (1.0-3.2); LYMPHOCYTES % 8.5 % (18.0-39.1); MEAN CORPUSCULAR HEMOGLOBIN 37.3 pg (28-32); MEAN CORPUSCULAR HGB CONC 37.1 g/dL (31-35); MEAN CORPUSCULAR VOLUME 100.8 fL (81-99); MONOCYTES # (AUTO) 0.3 (0.2-0.8); MONOCYTES % 5.9 % (4.4-11.3); NEUTROPHILS # (AUTO) 4.9 (2.1-6.9); NEUTROPHILS % 84.4 % (38.7-80.0); PLATELET COUNT 100 x10e3/uL (140-360); RED BLOOD COUNT 2.49 x10e6/uL (4.3-5.7); RED CELL DISTRIBUTION WIDTH 15.9 % (11.7-14.4)
[2022-07-23 06:40] LABS: ALBUMIN 3.8 g/dL (3.5-5.0); ALBUMIN/GLOBULIN RATIO 0.9 (0.8-2.0); ANION GAP 19.4 mmol/L (8-16); CALCIUM 9.4 mg/dL (8.4-10.2); CREATININE, SERUM 7.03 mg/dL (0.72-1.25); POTASSIUM 4.4 mmol/L (3.5-5.1)
[2022-07-23] MEDS: PANTOPRAZOLE SOD 40 MG TABEC PO SCH ×2 (08:47→16:28)
[2022-07-23] MEDS: APIXABAN 5 MG TABLET PO SCH ×2 (08:48→21:25)
[2022-07-23] MEDS: DOCUSATE SODIUM 100 MG CAP PO SCH ×2 (08:48→16:28)
[2022-07-23] MEDS: CARVEDILOL 12.5 MG TAB PO SCH ×2 (08:50→21:25)
[2022-07-23] MEDS ORDERED: TIZANIDINE HCL 4 MG TAB PO PRN (10:45)
[2022-07-23] MEDS ORDERED: FENTANYL 50 MCG/HR PATCH TOP SCH (11:00)
[2022-07-23] MEDS: HYDROCODONE/APAP 10MG-325MG TAB PO PRN ×2 (13:15→19:40)
[2022-07-24] VITALS: BP 149/81; PULSE 73; RESP 18; TEMP 97.4; O2SAT 100
[2022-07-24] MEDS: HYDROMORPHONE 1MG/1ML INJ IV PRN ×3 (04:21→12:26)
[2022-07-24] MEDS: ONDANSETRON HCL INJ 2MG/ML 2ML 2 MG/ML VIAL IV PRN ×4 (04:21→16:23)
[2022-07-24 04:36] VITALS: BP 138/78; PULSE 62; RESP 19; TEMP 97.3; O2SAT 98
[2022-07-24 06:28] LABS: BASOPHILS % 0.5 % (0.0-1.0); EOSINOPHILS % 0.7 % (0.0-6.0); HEMOGLOBIN 8.6 g/dL (14.0-18.0); LYMPHOCYTES # (AUTO) 0.7 (1.0-3.2); LYMPHOCYTES % 15.6 % (18.0-39.1); MEAN CORPUSCULAR HEMOGLOBIN 40.2 pg (28-32); MEAN CORPUSCULAR HGB CONC 37.4 g/dL (31-35); MEAN CORPUSCULAR VOLUME 107.5 fL (81-99); MONOCYTES # (AUTO) 0.4 (0.2-0.8); MONOCYTES % 9.4 % (4.4-11.3); NEUTROPHILS # (AUTO) 3.1 (2.1-6.9); NEUTROPHILS % 73.3 % (38.7-80.0); PLATELET COUNT 96 x10e3/uL (140-360); RED BLOOD COUNT 2.14 x10e6/uL (4.3-5.7); RED CELL DISTRIBUTION WIDTH 16.1 % (11.7-14.4)
[2022-07-24 06:50] LABS: ALBUMIN 3.7 g/dL (3.5-5.0); ANION GAP 22.7 mmol/L (8-16); CREATININE, SERUM 9.63 mg/dL (0.72-1.25); POTASSIUM 4.7 mmol/L (3.5-5.1)
[2022-07-24 08:00] VITALS: BP 132/81; PULSE 58; RESP 20; TEMP 97.9; O2SAT 98
[2022-07-24 08:21] VITALS: BP 132/81; PULSE 58; RESP 20; TEMP 97.9; O2SAT 98
[2022-07-24] MEDS: APIXABAN 5 MG TABLET PO SCH (08:28)
[2022-07-24 12:11] VITALS: BP 177/102; PULSE 66; RESP 20; TEMP 97.9; O2SAT 100
[2022-07-24] MEDS: DOCUSATE SODIUM 100 MG CAP PO SCH ×2 (13:22→16:23)
[2022-07-24] MEDS: PANTOPRAZOLE SOD 40 MG TABEC PO SCH ×2 (13:22→16:23)
[2022-07-24] MEDS: CARVEDILOL 12.5 MG TAB PO SCH (13:27)
[2022-07-24] MEDS: HYDRALAZINE HCL 20 MG/ML VIAL IV PRN (13:28)
[2022-07-24] MEDS ORDERED: ELIQUIS5 MG PO ×2 (15:08→15:09)
[2022-07-24 16:00] VITALS: BP 156/83; PULSE 77; RESP 20; TEMP 98.6; O2SAT 96
== END 2022-07-24 18:11 | disposition home or self-care (01) | DRG 175 ==
LOC: ER 05:10 → ERHOLD 09:21 → MED/SURG3 12:59
PROVIDERS: ADMIT Internal Medicine; ATTEND Internal Medicine
PROC: 5A1D70Z Performance of Urinary Filtration, Intermittent, Less than 6 Hours Per Day (ICD-10-PCS; principal; 2022-07-20)
DX: I26.99 Other pulmonary embolism without acute cor pulmonale (principal); I50.23 Acute on chronic systolic (congestive) heart failure; N18.6 End stage renal disease; I13.2 Hypertensive heart and chronic kidney disease with heart failure and with stage 5 chronic kidney disease, or end stage renal disease; I42.8 Other cardiomyopathies; E11.22 Type 2 diabetes mellitus with diabetic chronic kidney disease; E11.43 Type 2 diabetes mellitus with diabetic autonomic (poly)neuropathy; E11.65 Type 2 diabetes mellitus with hyperglycemia; K31.84 Gastroparesis; D63.1 Anemia in chronic kidney disease; K57.90 Diverticulosis of intestine, part unspecified, without perforation or abscess without bleeding; R74.8 Abnormal levels of other serum enzymes; Z99.2 Dependence on renal dialysis; I25.10 Atherosclerotic heart disease of native coronary artery without angina pectoris; E66.9 Obesity, unspecified; Z68.31 Body mass index [BMI] 31.0-31.9, adult; Z90.49 Acquired absence of other specified parts of digestive tract; Z87.01 Personal history of pneumonia (recurrent)
CPT/HCPCS: 0223U; 36415; 71046; 71260; 74177; 76700; 80053; 82550; 82553; 82948; 83036; 83690; 83880; 84484; 85025; 85730; 86706; 87340; 93005; 93306; 93971; 94799; 99284; J1170; J1644; J2270; J2405; J7030; Q9967

== ENCOUNTER 2022-08-08 20:31 | Observation (INO) | payer MEDICARE, OTHER ==
[~2022-08-08] VITALS: Ht 190.5 cm; Wt 111.1 kg
[~2022-08-08 20:31] MED LIST changes: +ELIQUIS5 MG PO
[2022-08-08] MEDS ORDERED: SODIUM CHLORIDE 0.9% 1000ML 1,000 ML IV STA (21:17)
[2022-08-08] MEDS ORDERED: ONDANSETRON HCL INJ 2MG/ML 2ML 2 MG/ML VIAL IV STA (21:17)
[2022-08-08] MEDS ORDERED: KETOROLAC TROMETHAMINE 30 MG/ML VIAL IV STA (21:17)
[2022-08-08] MEDS ORDERED: ONDANSETRON HCL INJ 2MG/ML 2ML 2 MG/ML VIAL ONE (21:18)
[2022-08-08] MEDS ORDERED: SODIUM CHLORIDE 0.9% 1000ML 1,000 ML ONE (21:18)
[2022-08-08] MEDS ORDERED: KETOROLAC TROMETHAMINE 30 MG/ML VIAL ONE (21:19)
[2022-08-08] MEDS ORDERED: PROMETHAZINE 25MG/SOD CHL 0.9% 50 ML IV ONE (21:34)
[2022-08-08 21:35] LABS: BASOPHILS % 0.2 % (0.0-1.0); EOSINOPHILS # (AUTO) 0.1 (0.0-0.4); HEMOGLOBIN 10.2 g/dL (14.0-18.0); LYMPHOCYTES # (AUTO) 0.8 (1.0-3.2); MEAN CORPUSCULAR HEMOGLOBIN 33.3 pg (28-32); MONOCYTES # (AUTO) 0.3 (0.2-0.8); MONOCYTES % 6.4 % (4.4-11.3); NEUTROPHILS # (AUTO) 3.8 (2.1-6.9); NEUTROPHILS % 76.2 % (38.7-80.0); PLATELET COUNT 114 x10e3/uL (140-360); RED BLOOD COUNT 3.06 x10e6/uL (4.3-5.7); RED CELL DISTRIBUTION WIDTH 16.9 % (11.7-14.4)
[2022-08-08] MEDS ORDERED: PROMETHAZINE 25MG/ NS 50ML (IV) IV ONE (21:40)
[2022-08-08 21:45] LABS: ALBUMIN 4.2 g/dL (3.5-5.0); ALBUMIN/GLOBULIN RATIO 0.9 (0.8-2.0); ANION GAP 19.8 mmol/L (8-16); CALCIUM 9.4 mg/dL (8.4-10.2); CREATININE, SERUM 8.39 mg/dL (0.72-1.25); POTASSIUM 3.8 mmol/L (3.5-5.1)
[2022-08-08] MEDS ORDERED: ONDANSETRON HCL INJ 2MG/ML 2ML 2 MG/ML VIAL IV PRN (23:45)
[2022-08-08] MEDS ORDERED: Morphine 4mg INJECTION 4 MG/ML INJ IV PRN (23:45)
[2022-08-08] MEDS ORDERED: SODIUM CHLORIDE FLUSH 10 ML SYR INJ PRN (23:45)
[2022-08-09] VITALS (7 sets, daily range): BP systolic 165–194; BP diastolic 90–99; PULSE 71–77; RESP 16–18; TEMP 97.9–99; O2SAT 95–100
[2022-08-09] MEDS ORDERED: HYDRALAZINE HCL 20 MG/ML VIAL IV PRN (02:15)
[2022-08-09] MEDS: HYDROMORPHONE 1MG/1ML INJ IV PRN ×2 (03:42→08:09)
[2022-08-09 07:45] LABS: BASOPHILS % 0.8 % (0.0-1.0); EOSINOPHILS # (AUTO) 0.1 (0.0-0.4); EOSINOPHILS % 2.9 % (0.0-6.0); HEMATOCRIT 26.6 % (38.2-49.6); LYMPHOCYTES # (AUTO) 0.7 (1.0-3.2); LYMPHOCYTES % 17.6 % (18.0-39.1); MEAN CORPUSCULAR HEMOGLOBIN 35.2 pg (28-32); MEAN CORPUSCULAR HGB CONC 33.8 g/dL (31-35); MEAN CORPUSCULAR VOLUME 103.9 fL (81-99); MONOCYTES # (AUTO) 0.3 (0.2-0.8); MONOCYTES % 9.1 % (4.4-11.3); NEUTROPHILS # (AUTO) 2.6 (2.1-6.9); NEUTROPHILS % 69.3 % (38.7-80.0); PLATELET COUNT 90 x10e3/uL (140-360); RED BLOOD COUNT 2.56 x10e6/uL (4.3-5.7); RED CELL DISTRIBUTION WIDTH 16.3 % (11.7-14.4)
[2022-08-09 08:08] LABS: ALBUMIN 3.6 g/dL (3.5-5.0); ANION GAP 18.9 mmol/L (8-16); CALCIUM 8.6 mg/dL (8.4-10.2); CREATININE, SERUM 8.98 mg/dL (0.72-1.25); POTASSIUM 3.9 mmol/L (3.5-5.1)
[2022-08-09] MEDS ORDERED: CARVEDILOL 12.5 MG TAB PO SCH (09:00)
[2022-08-10] MEDS ORDERED: TIZANIDINE HCL4 MG PO (08:44)
== END 2022-08-09 08:47 | disposition left against medical advice (07) ==
LOC: ER 20:35 → ERHOLD 23:38 → MED/SURG3 23:51
PROVIDERS: ADMIT Internal Medicine; ATTEND Internal Medicine
DX: R07.89 Other chest pain (principal); Z53.29 Procedure and treatment not carried out because of patient's decision for other reasons; I26.93 Single subsegmental thrombotic pulmonary embolism without acute cor pulmonale; Z79.01 Long term (current) use of anticoagulants; I13.2 Hypertensive heart and chronic kidney disease with heart failure and with stage 5 chronic kidney disease, or end stage renal disease; I50.22 Chronic systolic (congestive) heart failure; N18.6 End stage renal disease; E11.22 Type 2 diabetes mellitus with diabetic chronic kidney disease; Z99.2 Dependence on renal dialysis; I42.8 Other cardiomyopathies; E11.43 Type 2 diabetes mellitus with diabetic autonomic (poly)neuropathy; K31.84 Gastroparesis; Z87.01 Personal history of pneumonia (recurrent); Z79.899 Other long term (current) drug therapy
CPT/HCPCS: 0223U; 36415; 71045; 74176; 80053; 82550; 83690; 84484; 85025; 94799; 99284; G0378; J1170; J1885; J2270; J2405; J2550; J7030

== ENCOUNTER 2022-08-10 05:11 | Inpatient (IN) | payer MEDICARE, OTHER ==
[2022-08-10] VITALS (7 sets, daily range): BP systolic 146–174; BP diastolic 89–95; PULSE 71–78; RESP 16–19; TEMP 97.7–98.9; O2SAT 98–99
[~2022-08-10] VITALS: Ht 190.5 cm; Wt 111.4 kg
[2022-08-10] MEDS ORDERED: IOPAMIDOL 370 MG/ML 100 ML INFUS..BTL INJ ONE (05:45)
[2022-08-10] MEDS ORDERED: HYDROMORPHONE 1MG/1ML INJ IV STA (05:50)
[2022-08-10 05:58] LABS: EOSINOPHILS # (AUTO) 0.1 (0.0-0.4); EOSINOPHILS % 3.1 % (0.0-6.0); HEMATOCRIT 27.5 % (38.2-49.6); HEMOGLOBIN 8.8 g/dL (14.0-18.0); LYMPHOCYTES # (AUTO) 0.6 (1.0-3.2); LYMPHOCYTES % 15.9 % (18.0-39.1); MEAN CORPUSCULAR HEMOGLOBIN 32.6 pg (28-32); MEAN CORPUSCULAR VOLUME 101.9 fL (81-99); MONOCYTES # (AUTO) 0.4 (0.2-0.8); MONOCYTES % 9.2 % (4.4-11.3); NEUTROPHILS # (AUTO) 2.8 (2.1-6.9); NEUTROPHILS % 70.5 % (38.7-80.0); PLATELET COUNT 104 x10e3/uL (140-360); RED CELL DISTRIBUTION WIDTH 16.9 % (11.7-14.4)
[2022-08-10] MEDS ORDERED: ONDANSETRON HCL INJ 2MG/ML 2ML 2 MG/ML VIAL IV PRN ×2 (06:00→15:30)
[2022-08-10 06:30] LABS: ALBUMIN 3.7 g/dL (3.5-5.0); ALBUMIN/GLOBULIN RATIO 0.9 (0.8-2.0); ANION GAP 23.5 mmol/L (8-16); CREATININE, SERUM 10.81 mg/dL (0.72-1.25); POTASSIUM 4.5 mmol/L (3.5-5.1)
[2022-08-10] MEDS ORDERED: TIZANIDINE HCL4 MG PO (08:44)
[2022-08-10] MEDS: HYDROMORPHONE 1MG/1ML INJ IV PRN ×5 (08:46→21:24)
[2022-08-10] MEDS ORDERED: ACETAMINOPHEN 325 MG TAB PO PRN (15:30)
[2022-08-10] MEDS ORDERED: ZOLPIDEM TARTRATE 5 MG TAB PO PRN (15:30)
[2022-08-10] MEDS: PANTOPRAZOLE SOD 40 MG TABEC PO SCH (17:48)
[2022-08-10] MEDS: APIXABAN 5 MG TABLET PO SCH (17:48)
[2022-08-10] MEDS ORDERED: EPOETIN ALFA-EPBX 10,000 UNIT/ML VIAL IV SCH (18:00)
[2022-08-10] MEDS ORDERED: TIZANIDINE HCL 4 MG TAB PO PRN (19:15)
[2022-08-11] VITALS (8 sets, daily range): BP systolic 155–168; BP diastolic 89–93; PULSE 68–76; RESP 16–19; TEMP 97.3–98.4; O2SAT 92–99
[2022-08-11] MEDS: CARVEDILOL 12.5 MG TAB PO SCH ×3 (00:43→20:37)
[2022-08-11] MEDS: HYDROMORPHONE 1MG/1ML INJ IV PRN ×5 (00:45→20:38)
[2022-08-11 04:55] LABS: BASOPHILS % 0.9 % (0.0-1.0); EOSINOPHILS # (AUTO) 0.2 (0.0-0.4); EOSINOPHILS % 4.7 % (0.0-6.0); HEMATOCRIT 28.8 % (38.2-49.6); LYMPHOCYTES # (AUTO) 0.6 (1.0-3.2); LYMPHOCYTES % 17.8 % (18.0-39.1); MEAN CORPUSCULAR HEMOGLOBIN 31.6 pg (28-32); MEAN CORPUSCULAR HGB CONC 31.3 g/dL (31-35); MEAN CORPUSCULAR VOLUME 101.1 fL (81-99); MONOCYTES # (AUTO) 0.3 (0.2-0.8); MONOCYTES % 10.1 % (4.4-11.3); NEUTROPHILS # (AUTO) 2.2 (2.1-6.9); NEUTROPHILS % 66.2 % (38.7-80.0); PLATELET COUNT 97 x10e3/uL (140-360); RED BLOOD COUNT 2.85 x10e6/uL (4.3-5.7); RED CELL DISTRIBUTION WIDTH 16.9 % (11.7-14.4)
[2022-08-11 05:18] LABS: ALBUMIN 3.9 g/dL (3.5-5.0); ANION GAP 19.5 mmol/L (8-16); CALCIUM 9.3 mg/dL (8.4-10.2); CREATININE, SERUM 7.93 mg/dL (0.72-1.25); POTASSIUM 3.5 mmol/L (3.5-5.1)
[2022-08-11 06:15] LABS: FERRITIN 402.77 ng/mL (21.81-274.66)
[2022-08-11] MEDS: PANTOPRAZOLE SOD 40 MG TABEC PO SCH ×2 (07:45→17:26)
[2022-08-11] MEDS: SEVELAMER CARBONATE 800 MG TAB PO SCH ×3 (07:45→17:26)
[2022-08-11] MEDS: APIXABAN 5 MG TABLET PO SCH ×2 (08:11→17:26)
[2022-08-11] MEDS ORDERED: HYDRALAZINE HCL 20 MG/ML VIAL IV PRN (15:30)
[2022-08-12] VITALS (8 sets, daily range): BP systolic 145–187; BP diastolic 84–98; PULSE 65–79; RESP 18–20; TEMP 97.9–99; O2SAT 97–100
[2022-08-12] MEDS: HYDROMORPHONE 1MG/1ML INJ IV PRN ×7 (04:47→20:17)
[2022-08-12 05:59] LABS: BASOPHILS % 1.1 % (0.0-1.0); EOSINOPHILS # (AUTO) 0.1 (0.0-0.4); EOSINOPHILS % 3.4 % (0.0-6.0); HEMATOCRIT 26.4 % (38.2-49.6); HEMOGLOBIN 8.8 g/dL (14.0-18.0); LYMPHOCYTES # (AUTO) 0.8 (1.0-3.2); LYMPHOCYTES % 19.7 % (18.0-39.1); MEAN CORPUSCULAR HEMOGLOBIN 34.4 pg (28-32); MEAN CORPUSCULAR HGB CONC 33.3 g/dL (31-35); MEAN CORPUSCULAR VOLUME 103.1 fL (81-99); MONOCYTES # (AUTO) 0.4 (0.2-0.8); MONOCYTES % 9.7 % (4.4-11.3); NEUTROPHILS # (AUTO) 2.5 (2.1-6.9); NEUTROPHILS % 65.8 % (38.7-80.0); PLATELET COUNT 90 x10e3/uL (140-360); RED BLOOD COUNT 2.56 x10e6/uL (4.3-5.7); RED CELL DISTRIBUTION WIDTH 17.1 % (11.7-14.4)
[2022-08-12 06:29] LABS: ANION GAP 18.4 mmol/L (8-16); CALCIUM 8.9 mg/dL (8.4-10.2); CREATININE, SERUM 10.28 mg/dL (0.72-1.25); POTASSIUM 4.4 mmol/L (3.5-5.1)
[2022-08-12] MEDS ORDERED: SODIUM CHLORIDE 0.9% 1000ML 2,000 ML ONE (07:13)
[2022-08-12] MEDS: PANTOPRAZOLE SOD 40 MG TABEC PO SCH ×2 (07:51→16:06)
[2022-08-12] MEDS: APIXABAN 5 MG TABLET PO SCH ×2 (07:51→16:06)
[2022-08-12] MEDS: SEVELAMER CARBONATE 800 MG TAB PO SCH ×3 (07:51→16:06)
[2022-08-12] MEDS: CARVEDILOL 12.5 MG TAB PO SCH ×2 (09:00→16:12)
[2022-08-12] MEDS ORDERED: DIPHENHYDRAMINE HCL INJ 50 MG/ML VIAL IV ONE ×2 (10:00→15:45)
[2022-08-12] MEDS ORDERED: HEPARIN SOD (PORCINE) 1000 UNIT/ML SDV IV PRN (10:15)
[2022-08-12] MEDS ORDERED: SODIUM CHLORIDE 0.9% 1000ML 2,000 ML IV PRN (10:15)
[2022-08-12] MEDS ORDERED: ONDANSETRON HCL 4 MG ORAL DISINTEGRATING TAB PO PRN (12:45)
[2022-08-12] MEDS ORDERED: EPOETIN ALFA-EPBX 10,000 UNIT/ML VIAL IV SCH (18:00)
[2022-08-12] MEDS: HYDRALAZINE HCL 25 MG TAB PO SCH (20:17)
[2022-08-12] MEDS: DIPHENHYDRAMINE HCL INJ 50 MG/ML VIAL IV PRN (20:58)
[2022-08-13] MEDS: HYDROMORPHONE 1MG/1ML INJ IV PRN ×5 (00:01→14:58)
[2022-08-13 00:20] VITALS: BP 145/87; PULSE 73; RESP 18; TEMP 98.4; O2SAT 99
[2022-08-13] MEDS: DIPHENHYDRAMINE HCL INJ 50 MG/ML VIAL IV PRN ×2 (03:35→11:45)
[2022-08-13 04:59] VITALS: BP 162/96; PULSE 74; RESP 18; TEMP 98.1; O2SAT 100
[2022-08-13 07:21] VITALS: BP 158/100; PULSE 76; RESP 17; TEMP 98.3; O2SAT 100
[2022-08-13] MEDS: APIXABAN 5 MG TABLET PO SCH ×2 (08:33→17:00)
[2022-08-13] MEDS: CARVEDILOL 12.5 MG TAB PO SCH (08:34)
[2022-08-13] MEDS: SEVELAMER CARBONATE 800 MG TAB PO SCH ×3 (08:34→17:00)
[2022-08-13] MEDS: HYDRALAZINE HCL 25 MG TAB PO SCH ×2 (08:34→14:59)
[2022-08-13] MEDS: PANTOPRAZOLE SOD 40 MG TABEC PO SCH ×2 (08:35→16:30)
[2022-08-13 08:56] VITALS: BP 158/100; PULSE 76; RESP 17; TEMP 98.3; O2SAT 100
[2022-08-13 11:38] VITALS: BP 168/92; PULSE 70; RESP 17; TEMP 98.5; O2SAT 100
[2022-08-13 16:03] VITALS: BP_SYST 135; BP_SYST 174; BP_DIAS 105; BP_DIAS 80; PULSE 60; PULSE 74; RESP 19; RESP 20; TEMP 98.3; O2SAT 99
[2022-08-13] MEDS ORDERED: TIZANIDINE HCL4 MG PO (17:21)
== END 2022-08-13 18:01 | disposition home or self-care (01) | DRG 204 ==
LOC: ER 05:14 → ERHOLD 06:00 → MED/SURG2 17:11 → OBSVTOIN 08-11 12:27
PROVIDERS: ADMIT Internal Medicine; ATTEND Internal Medicine
PROC: 5A1D70Z Performance of Urinary Filtration, Intermittent, Less than 6 Hours Per Day (ICD-10-PCS; principal; 2022-08-10)
DX: R07.81 Pleurodynia (principal); N18.6 End stage renal disease; I13.2 Hypertensive heart and chronic kidney disease with heart failure and with stage 5 chronic kidney disease, or end stage renal disease; J98.11 Atelectasis; I50.42 Chronic combined systolic (congestive) and diastolic (congestive) heart failure; E11.22 Type 2 diabetes mellitus with diabetic chronic kidney disease; D63.1 Anemia in chronic kidney disease; E11.43 Type 2 diabetes mellitus with diabetic autonomic (poly)neuropathy; K31.84 Gastroparesis; E66.9 Obesity, unspecified; Z68.30 Body mass index [BMI] 30.0-30.9, adult; Z79.01 Long term (current) use of anticoagulants; Z86.711 Personal history of pulmonary embolism; Z63.9 Problem related to primary support group, unspecified; Z90.49 Acquired absence of other specified parts of digestive tract; Z20.822 Contact with and (suspected) exposure to COVID-19; Z99.2 Dependence on renal dialysis; Z59.6 Low income
CPT/HCPCS: 36415; 78580; 80048; 80053; 82550; 82728; 83540; 83880; 84466; 84484; 85025; 86706; 87340; 93005; 93306; 94799; 99284; A9540; G0378; J1170; J1200; J1644; J2405; J7030; Q0162; Q9967

== ENCOUNTER 2023-03-18 22:20 | Emergency (ER) | payer MEDICARE ==
[~2023-03-18] VITALS: Ht 190.5 cm; Wt 110.7 kg
[~2023-03-18 22:20] MED LIST changes: +AZITHROMYCIN250 MG PO; +DOXYCYCLINE HY100 MG PO; +ULTRAM 50MG50 MG PO
[2023-03-18] MEDS ORDERED: KETOROLAC TROMETHAMINE 30 MG/ML VIAL IV STA (22:31)
[2023-03-18] MEDS ORDERED: ONDANSETRON HCL INJ 2MG/ML 2ML 2 MG/ML VIAL IV STA (22:31)
[2023-03-18] MEDS ORDERED: KETOROLAC TROMETHAMINE 30 MG/ML VIAL ONE (22:38)
[2023-03-18] MEDS ORDERED: ONDANSETRON HCL INJ 2MG/ML 2ML 2 MG/ML VIAL ONE (22:38)
[2023-03-18 23:13] LABS: BASOPHILS % 0.5 % (0.0-1.0); EOSINOPHILS # (AUTO) 0.2 (0.0-0.4); EOSINOPHILS % 4.9 % (0.0-6.0); HEMOGLOBIN 11.9 g/dL (14.0-18.0); LYMPHOCYTES # (AUTO) 0.8 (1.0-3.2); LYMPHOCYTES % 18.6 % (18.0-39.1); MEAN CORPUSCULAR HEMOGLOBIN 33.2 pg (28-32); MEAN CORPUSCULAR HGB CONC 32.2 g/dL (31-35); MEAN CORPUSCULAR VOLUME 103.4 fL (81-99); MONOCYTES # (AUTO) 0.3 (0.2-0.8); MONOCYTES % 8.1 % (4.4-11.3); NEUTROPHILS # (AUTO) 2.8 (2.1-6.9); NEUTROPHILS % 67.4 % (38.7-80.0); RED BLOOD COUNT 3.58 x10e6/uL (4.3-5.7); RED CELL DISTRIBUTION WIDTH 14.5 % (11.7-14.4); WHITE BLOOD COUNT 4.09 x10e3/uL (4.8-10.8)
[2023-03-18 23:16] LABS: PLATELET COUNT 81 x10e3/uL (140-360)
[2023-03-18 23:32] LABS: ALBUMIN 4.3 g/dL (3.5-5.0); ALBUMIN/GLOBULIN RATIO 1.1 (0.8-2.0); ANION GAP 23.9 mmol/L (8-16); BILIRUBIN,TOTAL 1.4 mg/dL (0.2-1.2); CALCIUM 9.6 mg/dL (8.4-10.2); CREATININE, SERUM 10.3 mg/dL (0.72-1.25); POTASSIUM 4.9 mmol/L (3.5-5.1); TOTAL PROTEIN 8.3 g/dL (6.5-8.1)
[2023-03-18 23:38] LABS: TROPONIN I 0.078 ng/mL (0-0.300)
[2023-03-19 00:45] VITALS: BP 170/100; PULSE 95; RESP 17; TEMP 97.8; O2SAT 99
== END 2023-03-19 00:53 | disposition home or self-care (01) ==
LOC: ER 22:25
DX: R07.81 Pleurodynia (principal); I12.0 Hypertensive chronic kidney disease with stage 5 chronic kidney disease or end stage renal disease; N18.6 End stage renal disease; Z99.2 Dependence on renal dialysis; D64.9 Anemia, unspecified; R94.31 Abnormal electrocardiogram [ECG] [EKG]
CPT/HCPCS: 36415; 71045; 80053; 83690; 84484; 85025; 93005; 99283; J1885; J2405